=== PATIENT | male | born 1940 | race Caucasian/White ===

== ENCOUNTER → 2016-12-03 | Outpatient (REF) | payer OTHER ==
[~2016-12-03] MED LIST: AMLO10TA2 PO; ASPI1TAB PO; CIPR500T89 PO; FLAG500T PO; HYDR12.55 PO; K-TA1TAB PO; LISI40TAB PO; MULTCAP PO; OXYC1TAB55 PO; OXYC5CAP28 PO; TYLE325T5 PO; ZEBE5TAB PO
[2016-12-03 11:32] LABS: BASO % 0.7 % (0.0-1.0); EOS # 0.2 K/mm3 (0.0-0.50); EOS % 3.1 % (0.0-3.0); LARGE UNSTAINED CELL # 0.1 K/mm3 (0.0-0.4); LARGE UNSTAINED CELL % 1.5 % (0.0-4.0); LYMPH # 1.1 K/mm3 (1.5-4.5); MEAN CORPUSCULAR HEMOGLOBIN 32.6 pg (27.0-33.0); MEAN CORPUSCULAR HGB CONC 34.8 g/dl (32.0-36.5); MEAN CORPUSCULAR VOLUME 93.6 fl (80.0-96.0); MONO # 0.4 K/mm3 (0.0-0.8); MONO % 7.2 % (0.0-5.0); NEUTROPHILS # 3.6 K/mm3 (1.8-7.7); NEUTROPHILS % 68.5 % (36.0-66.0); PLATELET COUNT, AUTOMATED 266 k/mm3 (150-450); RED CELL DISTRIBUTION WIDTH 12.6 % (11.5-14.5); WHITE BLOOD COUNT 5.2 K/mm3 (4.0-10.0)
[2016-12-03 12:16] LABS: ALBUMIN 3.5 GM/DL (3.2-5.2); ALKALINE PHOSPHATASE 80 U/L (45-117); ALT/SGPT 18 U/L (12-78); ANION GAP 7 MEQ/L (8-16); AST/SGOT 14 U/L (15-37); BILIRUBIN,TOTAL 0.6 MG/DL (0.2-1.0); BLOOD UREA NITROGEN 20 MG/DL (7-18); CALCIUM LEVEL 8.7 MG/DL (8.8-10.2); CARBON DIOXIDE LEVEL 31 MEQ/L (21-32); CHLORIDE LEVEL 101 MEQ/L (98-107); CHOLESTEROL LEVEL 191 MG/DL (<200); CREATININE FOR GFR 0.98 MG/DL (0.70-1.30); GLOMERULAR FILTRATION RATE > 60.0 (>42); GLUCOSE, FASTING 122 MG/DL (83-110); POTASSIUM SERUM 3.2 MEQ/L (3.5-5.1); SODIUM LEVEL 139 MEQ/L (136-145); TOTAL PROTEIN 7.4 GM/DL (6.4-8.2); TRIGLYCERIDES LEVEL 145 MG/DL (<150)
== END ==
LOC: M SFHCPLAZ 07:54
PROVIDERS: ATTEND Family Medicine
DX: I10 Essential (primary) hypertension (principal); E78.2 Mixed hyperlipidemia; R73.01 Impaired fasting glucose

== ENCOUNTER → 2016-12-11 | Outpatient (REF) | payer OTHER ==
[2016-12-11 16:13] LABS: BASO % 0.7 % (0.0-1.0); EOS # 0.1 K/mm3 (0.0-0.50); EOS % 1.1 % (0.0-3.0); LARGE UNSTAINED CELL # 0.1 K/mm3 (0.0-0.4); LARGE UNSTAINED CELL % 1.3 % (0.0-4.0); LYMPH # 0.8 K/mm3 (1.5-4.5); MEAN CORPUSCULAR HEMOGLOBIN 32.8 pg (27.0-33.0); MEAN CORPUSCULAR HGB CONC 34.6 g/dl (32.0-36.5); MEAN CORPUSCULAR VOLUME 94.6 fl (80.0-96.0); MONO # 0.4 K/mm3 (0.0-0.8); MONO % 6.8 % (0.0-5.0); NEUTROPHILS # 4.5 K/mm3 (1.8-7.7); NEUTROPHILS % 78.1 % (36.0-66.0); PLATELET COUNT, AUTOMATED 256 k/mm3 (150-450); RED CELL DISTRIBUTION WIDTH 12.7 % (11.5-14.5); WHITE BLOOD COUNT 5.7 K/mm3 (4.0-10.0)
[2016-12-11 16:46] LABS: ALBUMIN 3.7 GM/DL (3.2-5.2); ALBUMIN/GLOBULIN RATIO 0.95 (1.00-1.93); ALKALINE PHOSPHATASE 80 U/L (45-117); ALT/SGPT 21 U/L (12-78); ANION GAP 9 MEQ/L (8-16); AST/SGOT 14 U/L (15-37); BILIRUBIN,TOTAL 0.4 MG/DL (0.2-1.0); BLOOD UREA NITROGEN 20 MG/DL (7-18); CALCIUM LEVEL 8.7 MG/DL (8.8-10.2); CARBON DIOXIDE LEVEL 30 MEQ/L (21-32); CHLORIDE LEVEL 103 MEQ/L (98-107); CREATININE FOR GFR 0.99 MG/DL (0.70-1.30); GLOMERULAR FILTRATION RATE > 60.0 (>42); GLUCOSE, FASTING 104 MG/DL (83-110); MAGNESIUM LEVEL 2.2 MG/DL (1.8-2.4); POTASSIUM SERUM 3.3 MEQ/L (3.5-5.1); SODIUM LEVEL 142 MEQ/L (136-145); TOTAL PROTEIN 7.6 GM/DL (6.4-8.2)
== END ==
LOC: M SFHCPLAZ 12:03
PROVIDERS: ATTEND Family Medicine
DX: K59.00 Constipation, unspecified (principal); J34.0 Abscess, furuncle and carbuncle of nose; R73.01 Impaired fasting glucose; I10 Essential (primary) hypertension; E78.2 Mixed hyperlipidemia; R33.9 Retention of urine, unspecified; N40.1 Benign prostatic hyperplasia with lower urinary tract symptoms; E66.3 Overweight; Z12.11 Encounter for screening for malignant neoplasm of colon
CPT/HCPCS: 36415; 80053; 83735; 85025; 86140; G0463

== ENCOUNTER → 2017-05-16 | Outpatient (REF) | payer OTHER ==
[~2017-05-16] MED LIST changes: +CIPR-249 PO; -CIPR500T89 PO; +OXYC-403 PO; -OXYC1TAB55 PO
[2017-05-16 13:49] LABS: ALBUMIN 3.7 GM/DL (3.2-5.2); ALBUMIN/GLOBULIN RATIO 0.97 (1.00-1.93); ALKALINE PHOSPHATASE 81 U/L (45-117); ALT/SGPT 22 U/L (12-78); ANION GAP 8 MEQ/L (8-16); AST/SGOT 15 U/L (15-37); BILIRUBIN,TOTAL 0.5 MG/DL (0.2-1.0); BLOOD UREA NITROGEN 25 MG/DL (7-18); CALCIUM LEVEL 9.2 MG/DL (8.8-10.2); CARBON DIOXIDE LEVEL 32 MEQ/L (21-32); CHLORIDE LEVEL 100 MEQ/L (98-107); CREATININE FOR GFR 1.05 MG/DL (0.70-1.30); GLOMERULAR FILTRATION RATE > 60.0 (>42); GLUCOSE, FASTING 129 MG/DL (83-110); MAGNESIUM LEVEL 2.3 MG/DL (1.8-2.4); POTASSIUM SERUM 3.1 MEQ/L (3.5-5.1); SODIUM LEVEL 140 MEQ/L (136-145); TOTAL PROTEIN 7.5 GM/DL (6.4-8.2)
== END ==
LOC: M SFHCPLAZ 08:00
PROVIDERS: ATTEND Family Medicine
DX: I10 Essential (primary) hypertension (principal); R73.01 Impaired fasting glucose; N40.1 Benign prostatic hyperplasia with lower urinary tract symptoms
CPT/HCPCS: 36415; 80053; 81001; 82043; 83036; 83735; G0103

== ENCOUNTER 2017-06-12 08:05 | Day surgery (SDC) | payer OTHER ==
[~2017-06-12] VITALS: Ht 170.2 cm; Wt 83.0 kg
[~2017-06-12 08:05] MED LIST changes: +CHLO25TA PO; +FLOM5CAP PO; +METF500T4 PO; +NS 1,000 ML IV ONE; +POTA20TA6 PO
[2017-06-12] MEDS ORDERED: PROPOFOL 200 MG/20 ML VIAL As Ordered ONE (09:48)
--- NOTE | 2017-06-12 09:57 | ROOR ---
Patient Name: Tre Henderson Procedure Date: 06/12/2017 9:36 AM Date of : 1940 Age: 77 Room: [facility] Gender: Male Note Status: Finalized Procedure: Total Colonoscopy to Cecum Indications: Screening for colorectal malignant neoplasm, Last colonoscopy: 2007 Providers: Tom Farrell MD Referring MD: Aubrey Elizondo MD Requesting Provider: Medicines: Monitored Anesthesia Care Complications: No immediate complications. Procedure: Pre-Anesthesia Assessment: - The heart rate, respiratory rate, oxygen saturations, blood pressure, adequacy of pulmonary ventilation, and response to care were monitored throughout the procedure. The Colonoscope was introduced through the anus and advanced to the cecum, identified by appendiceal orifice and ileocecal valve. The colonoscopy was performed without difficulty. The patient tolerated the procedure well. The quality of the bowel preparation was good. Findings: The perianal and digital rectal examinations were normal. Non-bleeding internal hemorrhoids were found during retroflexion. The hemorrhoids were small and Grade I (internal hemorrhoids that do not prolapse). Multiple small and large-mouthed diverticula were found in the recto-sigmoid colon, sigmoid colon and descending colon. The exam was otherwise without abnormality on direct and retroflexion views. Impression: - Non-bleeding internal hemorrhoids. - Diverticulosis in the recto-sigmoid colon, in the sigmoid colon and in the descending colon. - The examination was otherwise normal on direct and retroflexion views. - No specimens collected. - The exam was otherwise normal to the cecum. Recommendation: - Patient has a contact number available for emergencies. The signs and symptoms of potential delayed complications were discussed with the patient. Return to normal activities tomorrow. Written discharge instructions were provided to the patient. - High fiber diet. - Discharge patient to home. - Continue present medications. - Repeat colonoscopy for symptoms only. - Return to referring physician. - The findings and recommendations were discussed with the patient's family. Tom Farrell MD Tom Farrell MD 06/12/2017 9:56:56 AM This report has been signed electronically. Number of Addenda: 0 Note Initiated On: 06/12/2017 9:36 AM Estimated Blood Loss: Estimated blood loss: none.
[2017-06-12 10:10] VITALS: BP 134/72
== END 2017-06-12 10:20 | disposition home or self-care (01) ==
LOC: M OPP 08:05
PROVIDERS: ATTEND Internal Medicine Gastroenterology
DX: Z12.11 Encounter for screening for malignant neoplasm of colon (principal); K64.0 First degree hemorrhoids; K57.30 Diverticulosis of large intestine without perforation or abscess without bleeding; I10 Essential (primary) hypertension; E11.9 Type 2 diabetes mellitus without complications; N40.0 Benign prostatic hyperplasia without lower urinary tract symptoms; Z79.82 Long term (current) use of aspirin; Z79.84 Long term (current) use of oral hypoglycemic drugs; Z79.899 Other long term (current) drug therapy

== ENCOUNTER → 2017-10-14 | Outpatient (REF) | payer OTHER ==
[2017-10-14 11:57] LABS: BASO % 0.6 % (0.0-1.0); EOS # 0.3 10^3/uL (0.0-0.50); EOS % 5.3 % (0.0-3.0); HEMATOCRIT 42.1 % (42.0-52.0); HEMOGLOBIN 14.4 g/dl (14.0-18.0); IMMATURE GRANULOCYTE % 0.2 % (0-3.0); LYMPH % 21.3 % (24.0-44.0); MEAN CORPUSCULAR HEMOGLOBIN 31.5 pg (27.0-33.0); MEAN CORPUSCULAR HGB CONC 34.2 g/dl (32.0-36.5); MEAN CORPUSCULAR VOLUME 92.1 fl (80.0-96.0); MONO # 0.4 10^3/uL (0.0-0.8); MONO % 8.8 % (0.0-5.0); NEUTROPHILS # 3.1 10^3/uL (1.8-7.7); NEUTROPHILS % 63.8 % (36.0-66.0); PLATELET COUNT, AUTOMATED 293 10^3/uL (150-450); RED BLOOD COUNT 4.57 10^6/uL (4.30-6.10); RED CELL DISTRIBUTION WIDTH 12.3 % (11.5-14.5); WHITE BLOOD COUNT 4.9 10^3/uL (4.0-10.0)
[2017-10-14 12:20] LABS: ALBUMIN 3.6 GM/DL (3.2-5.2); ALBUMIN/GLOBULIN RATIO 0.97 (1.00-1.93); ALKALINE PHOSPHATASE 85 U/L (45-117); ALT/SGPT 17 U/L (12-78); ANION GAP 7 MEQ/L (8-16); AST/SGOT 17 U/L (7-37); BILIRUBIN,TOTAL 0.4 MG/DL (0.2-1.0); BLOOD UREA NITROGEN 20 MG/DL (7-18); C REACTIVE PROTEIN QUANTITATIV 0.44 MG/DL (0.00-0.30); CALCIUM LEVEL 8.8 MG/DL (8.8-10.2); CARBON DIOXIDE LEVEL 29 MEQ/L (21-32); CHLORIDE LEVEL 105 MEQ/L (98-107); CHOLESTEROL LEVEL 191 MG/DL (<200); CHOLESTEROL RISK RATIO 4.063 (<5); CPK CREATINE PHOSPHOKINASE 64 U/L (39-308); CREATININE FOR GFR 0.93 MG/DL (0.70-1.30); FREE T4 1.13 NG/DL (0.76-1.46); GLOMERULAR FILTRATION RATE > 60.0 (>42); GLUCOSE, FASTING 126 MG/DL (70-100); HDL CHOLESTEROL 47 MG/DL (>40); LDL CHOLESTEROL 116.2 MG/DL (<100); NON-HDL-C 144 MG/DL; POTASSIUM SERUM 3.6 MEQ/L (3.5-5.1); SODIUM LEVEL 141 MEQ/L (136-145); TOTAL PROTEIN 7.3 GM/DL (6.4-8.2); TRIGLYCERIDES LEVEL 139 MG/DL (<150)
[2017-10-14 13:45] LABS: ESTIMATED AVERAGE GLUCOSE 123 MG/DL (60-110); HEMOGLOBIN A1c 5.9 %
[2017-10-15 14:13] LABS: INSULIN LEVEL 15.8 uIU/mL (2.6-24.9)
== END ==
LOC: M SFHCPLAZ 07:57
DX: E78.2 Mixed hyperlipidemia (principal); R73.01 Impaired fasting glucose
CPT/HCPCS: 82550

== ENCOUNTER → 2018-02-20 | Outpatient (REF) | payer OTHER ==
[2018-02-20 12:37] LABS: APPEARANCE, URINE CLOUDY (CLEAR); BACTERIA, URINE AUTO 1+ (NEGATIVE); BILIRUBIN, URINE AUTO NEGATIVE (NEGATIVE); BLOOD, URINE BLOOD NEGATIVE (NEGATIVE); COLOR, URINE AMBER (YELLOW); GLUCOSE, URINE (UA) AUTO NEGATIVE (NEGATIVE); KETONE, URINE AUTO NEGATIVE (NEGATIVE); LEUKOCYTE ESTERASE, URINE AUTO NEGATIVE (NEGATIVE); MUCUS, URINE MODERATE (NEGATIVE); NITRITE, URINE AUTO NEGATIVE (NEGATIVE); PROTEIN, URINE AUTO 1+ mg/dL (NEGATIVE); RBC, URINE AUTO 3 /HPF (0-3); SPECIFIC GRAVITY URINE AUTO 1.017 (1.002-1.035); SQUAMOUS EPITHELIAL CELL UR AU 0 /HPF (0-6); WBC, URINE AUTO 7 /HPF (0-3)
[2018-02-20 12:58] LABS: ALBUMIN 3.4 GM/DL (3.2-5.2); ALBUMIN/GLOBULIN RATIO 0.85 (1.00-1.93); ALKALINE PHOSPHATASE 74 U/L (45-117); ALT/SGPT 24 U/L (12-78); ANION GAP 9 MEQ/L (8-16); AST/SGOT 16 U/L (7-37); BILIRUBIN,TOTAL 0.6 MG/DL (0.2-1.0); BLOOD UREA NITROGEN 17 MG/DL (7-18); CALCIUM LEVEL 8.8 MG/DL (8.8-10.2); CARBON DIOXIDE LEVEL 30 MEQ/L (21-32); CHLORIDE LEVEL 104 MEQ/L (98-107); CHOLESTEROL LEVEL 104 MG/DL (<200); CHOLESTEROL RISK RATIO 2.363 (<5); CPK CREATINE PHOSPHOKINASE 78 U/L (39-308); CREATININE FOR GFR 1.06 MG/DL (0.70-1.30); GLOMERULAR FILTRATION RATE > 60.0 (>42); GLUCOSE, FASTING 130 MG/DL (70-100); HDL CHOLESTEROL 44 MG/DL (>40); MAGNESIUM LEVEL 2.1 MG/DL (1.8-2.4); NON-HDL-C 60 MG/DL; POTASSIUM SERUM 3.6 MEQ/L (3.5-5.1); SODIUM LEVEL 143 MEQ/L (136-145); TOTAL PROTEIN 7.4 GM/DL (6.4-8.2); TRIGLYCERIDES LEVEL 120 MG/DL (<150)
[2018-02-20 14:46] LABS: ESTIMATED AVERAGE GLUCOSE 154 MG/DL (60-110)
== END ==
LOC: M SFHCPLAZ 07:52
DX: E78.2 Mixed hyperlipidemia (principal); R73.01 Impaired fasting glucose; N40.1 Benign prostatic hyperplasia with lower urinary tract symptoms
CPT/HCPCS: 82550

== ENCOUNTER → 2018-07-24 | Outpatient (REF) | payer OTHER ==
[~2018-07-24] MED LIST changes: -AMLO10TA2 PO; +AMLO10TA5 PO; +FLOM0.4C39 PO; -FLOM5CAP PO; -NS 1,000 ML IV ONE
[2018-07-24 13:14] LABS: APPEARANCE, URINE HAZY (CLEAR); BACTERIA, URINE AUTO NEGATIVE (NEGATIVE); BILIRUBIN, URINE AUTO NEGATIVE (NEGATIVE); BLOOD, URINE BLOOD NEGATIVE (NEGATIVE); COLOR, URINE AMBER (YELLOW); GLUCOSE, URINE (UA) AUTO NEGATIVE (NEGATIVE); KETONE, URINE AUTO NEGATIVE (NEGATIVE); LEUKOCYTE ESTERASE, URINE AUTO NEGATIVE (NEGATIVE); MUCUS, URINE LARGE (NEGATIVE); NITRITE, URINE AUTO NEGATIVE (NEGATIVE); PROTEIN, URINE AUTO NEGATIVE (NEGATIVE); RBC, URINE AUTO 3 /HPF (0-3); SPECIFIC GRAVITY URINE AUTO 1.021 (1.002-1.035); SQUAMOUS EPITHELIAL CELL UR AU 0 /HPF (0-6); UROBILINOGEN, URINE AUTO 0.2 mg/dL (0.0-2.0); WBC, URINE AUTO 2 /HPF (0-3)
[2018-07-24 13:16] LABS: BASO % 0.5 % (0.0-1.0); EOS # 0.2 10^3/uL (0.0-0.50); EOS % 3.7 % (0.0-3.0); HEMATOCRIT 39.8 % (42.0-52.0); HEMOGLOBIN 13.8 g/dl (13.5-17.5); LYMPH # 1.1 10^3/uL (1.5-4.5); LYMPH % 18.8 % (24.0-44.0); MEAN CORPUSCULAR HEMOGLOBIN 32.2 pg (27.0-33.0); MEAN CORPUSCULAR HGB CONC 34.7 g/dl (32.0-36.5); MEAN CORPUSCULAR VOLUME 92.8 fl (80.0-96.0); MONO # 0.5 10^3/uL (0.0-0.8); MONO % 9.2 % (0.0-5.0); NEUTROPHILS # 3.9 10^3/uL (1.8-7.7); NEUTROPHILS % 67.5 % (36.0-66.0); PLATELET COUNT, AUTOMATED 262 10^3/uL (150-450); RED BLOOD COUNT 4.29 10^6/uL (4.30-6.10); WHITE BLOOD COUNT 5.8 10^3/uL (4.0-10.0)
[2018-07-24 13:30] LABS: ALBUMIN 3.5 GM/DL (3.2-5.2); ALT/SGPT 35 U/L (12-78); BILIRUBIN,TOTAL 0.4 MG/DL (0.2-1.0); BLOOD UREA NITROGEN 22 MG/DL (7-18); CALCIUM LEVEL 8.7 MG/DL (8.8-10.2); CARBON DIOXIDE LEVEL 30 MEQ/L (21-32); CHLORIDE LEVEL 103 MEQ/L (98-107); CREATININE FOR GFR 1.03 MG/DL (0.70-1.30); FREE T4 1.19 NG/DL (0.76-1.46); GLOMERULAR FILTRATION RATE > 60.0 (>42); GLUCOSE, FASTING 118 MG/DL (70-100); POTASSIUM SERUM 3.5 MEQ/L (3.5-5.1); SODIUM LEVEL 140 MEQ/L (136-145); TOTAL PROTEIN 7.3 GM/DL (6.4-8.2)
[2018-07-24 14:20] LABS: MALB URINE SIEMENS 49.7 MG/L; MAU/CREAT RATIO 16.8 MCG/MG (0.0-30.0)
[2018-07-24 14:42] LABS: HEMOGLOBIN A1c 6.4 %
[2018-07-25 13:49] LABS: THYROID PEROXIDASE ANTIBODY < 28.0 U/ML (<60.0)
== END ==
LOC: M SFHCPLAZ 07:40
PROVIDERS: ATTEND Family Medicine
DX: R73.01 Impaired fasting glucose (principal); E78.2 Mixed hyperlipidemia

== ENCOUNTER → 2019-01-20 | Outpatient (REF) | payer MEDICARE ==
[~2019-01-20] MED LIST changes: -ASPI1TAB PO; +ASPI81TA26 PO; +LISI40TA52 PO; -LISI40TAB PO
[2019-01-20 10:03] LABS: BASO % 0.4 % (0.0-1.0); EOS # 0.2 10^3/uL (0.0-0.50); EOS % 4.5 % (0.0-3.0); HEMATOCRIT 40.6 % (42.0-52.0); HEMOGLOBIN 13.8 g/dl (13.5-17.5); LYMPH # 1.1 10^3/uL (1.5-4.5); LYMPH % 20.5 % (24.0-44.0); MEAN CORPUSCULAR HEMOGLOBIN 31.8 pg (27.0-33.0); MEAN CORPUSCULAR VOLUME 93.5 fl (80.0-96.0); MONO # 0.6 10^3/uL (0.0-0.8); NEUTROPHILS # 3.3 10^3/uL (1.8-7.7); NEUTROPHILS % 63.2 % (36.0-66.0); PLATELET COUNT, AUTOMATED 248 10^3/uL (150-450); RED BLOOD COUNT 4.34 10^6/uL (4.30-6.10); WHITE BLOOD COUNT 5.3 10^3/uL (4.0-10.0)
[2019-01-20 10:17] LABS: APPEARANCE, URINE HAZY (CLEAR); BACTERIA, URINE AUTO NEGATIVE (NEGATIVE); BILIRUBIN, URINE AUTO NEGATIVE (NEGATIVE); BLOOD, URINE BLOOD NEGATIVE (NEGATIVE); COLOR, URINE YELLOW (YELLOW); GLUCOSE, URINE (UA) AUTO NEGATIVE (NEGATIVE); KETONE, URINE AUTO TRACE mg/dL (NEGATIVE); LEUKOCYTE ESTERASE, URINE AUTO NEGATIVE (NEGATIVE); MUCUS, URINE SMALL (NEGATIVE); NITRITE, URINE AUTO NEGATIVE (NEGATIVE); PROTEIN, URINE AUTO NEGATIVE (NEGATIVE); RBC, URINE AUTO 2 /HPF (0-3); SPECIFIC GRAVITY URINE AUTO 1.018 (1.002-1.035); SQUAMOUS EPITHELIAL CELL UR AU 0 /HPF (0-6); UROBILINOGEN, URINE AUTO 0.2 mg/dL (0.0-2.0); WBC, URINE AUTO 1 /HPF (0-3)
[2019-01-20 10:22] LABS: ALBUMIN 3.6 GM/DL (3.2-5.2); ALT/SGPT 22 U/L (12-78); BILIRUBIN,TOTAL 0.6 MG/DL (0.2-1.0); BLOOD UREA NITROGEN 19 MG/DL (7-18); CALCIUM LEVEL 8.9 MG/DL (8.8-10.2); CARBON DIOXIDE LEVEL 28 MEQ/L (21-32); CHLORIDE LEVEL 104 MEQ/L (98-107); CHOLESTEROL LEVEL 116 MG/DL (<200); GLOMERULAR FILTRATION RATE > 60.0 (>42); GLUCOSE, FASTING 122 MG/DL (70-100); HDL CHOLESTEROL 52 MG/DL (>40); LDL CHOLESTEROL 43 MG/DL (<100); MAGNESIUM LEVEL 2.3 MG/DL (1.8-2.4); NON-HDL-C 64 MG/DL; POTASSIUM SERUM 3.4 MEQ/L (3.5-5.1); SODIUM LEVEL 141 MEQ/L (136-145); TOTAL PROTEIN 7.5 GM/DL (6.4-8.2); TRIGLYCERIDES LEVEL 103 MG/DL (<150)
[2019-01-20 11:33] LABS: HEMOGLOBIN A1c 6.4 %
[2019-01-20 14:09] LABS: VITAMIN B12 LEVEL 480 PG/ML (247-911)
== END ==
LOC: M SFHCPLAZ 07:44
PROVIDERS: ATTEND Family Medicine
DX: I10 Essential (primary) hypertension (principal); R73.01 Impaired fasting glucose; E78.2 Mixed hyperlipidemia

== ENCOUNTER → 2019-08-11 | Outpatient (REF) | payer MEDICARE ==
[~2019-08-11] MED LIST changes: +METF-791 PO; -METF500T4 PO
[2019-08-11 10:38] LABS: BASO % 0.6 % (0.0-1.0); EOS # 0.2 10^3/uL (0.0-0.5); EOS % 4.5 % (0.0-3.0); HEMATOCRIT 42.3 % (42.0-52.0); LYMPH # 0.9 10^3/uL (1.5-5.0); LYMPH % 20.2 % (24.0-44.0); MEAN CORPUSCULAR HEMOGLOBIN 31.3 pg (27.0-33.0); MEAN CORPUSCULAR HGB CONC 33.1 g/dl (32.0-36.5); MEAN CORPUSCULAR VOLUME 94.6 fl (80.0-96.0); MONO # 0.5 10^3/uL (0.0-0.8); MONO % 11.6 % (0.0-5.0); NEUTROPHILS # 2.9 10^3/uL (1.5-8.5); NEUTROPHILS % 62.9 % (36.0-66.0); PLATELET COUNT, AUTOMATED 234 10^3/uL (150-450); RED BLOOD COUNT 4.47 10^6/uL (4.30-6.10); WHITE BLOOD COUNT 4.7 10^3/uL (4.0-10.0)
[2019-08-11 11:01] LABS: ALBUMIN 3.7 GM/DL (3.2-5.2); ALT/SGPT 17 U/L (12-78); BILIRUBIN,TOTAL 0.7 MG/DL (0.2-1.0); BLOOD UREA NITROGEN 20 MG/DL (7-18); CALCIUM LEVEL 8.7 MG/DL (8.8-10.2); CARBON DIOXIDE LEVEL 29 MEQ/L (21-32); CHLORIDE LEVEL 103 MEQ/L (98-107); CREATININE FOR GFR 0.99 MG/DL (0.70-1.30); GLOMERULAR FILTRATION RATE > 60.0 (>42); GLUCOSE, FASTING 118 MG/DL (70-100); POTASSIUM SERUM 3.2 MEQ/L (3.5-5.1); SODIUM LEVEL 140 MEQ/L (136-145); TOTAL PROTEIN 7.3 GM/DL (6.4-8.2)
[2019-08-11 12:45] LABS: HEMOGLOBIN A1c 6.2 %
[2019-08-13 14:12] LABS: ALBUMIN 3.93 GM/DL (3.29-5.55); ALBUMIN % 53.9 % (55.8-66.1); ALPHA-1-GLOBULIN % 3.9 % (2.9-4.9); ALPHA-1-GLOBULINS 0.28 GM/DL (0.17-0.41); ALPHA-2-GLOBULINS 0.76 GM/DL (0.42-0.99); ALPHA-2-GLOBULINS % 10.4 % (7.1-11.8); BETA-1-GLOBULINS 0.37 GM/DL (0.28-0.60); BETA-1-GLOBULINS % 5.1 % (4.7-7.2); BETA-2-GLOBULINS 0.35 GM/DL (0.19-0.55); BETA-2-GLOBULINS % 4.8 % (3.2-6.5); GAMMA GLOBULIN % 21.9 % (11.1-18.8)
== END ==
LOC: M SFHCPLAZ 07:43
PROVIDERS: ATTEND Family Medicine
DX: Z12.5 Encounter for screening for malignant neoplasm of prostate (principal); R73.01 Impaired fasting glucose; I10 Essential (primary) hypertension
CPT/HCPCS: 36415; 80053; 83036; 84165; 84439; 84443; 85025; 85046; G0103

== ENCOUNTER → 2020-01-08 | Outpatient (CLI) | payer MEDICARE ==
[~2020-01-08] MED LIST changes: -AMLO10TA5 PO; +AMLO1TAB25 PO; -METF-791 PO; +METF-838 PO
[2020-01-08 11:26] LABS: ALBUMIN 3.6 GM/DL (3.2-5.2); ALT/SGPT 22 U/L (12-78); BILIRUBIN,TOTAL 0.5 MG/DL (0.2-1.0); BLOOD UREA NITROGEN 24 MG/DL (7-18); CALCIUM LEVEL 8.5 MG/DL (8.8-10.2); CARBON DIOXIDE LEVEL 31 MEQ/L (21-32); CHLORIDE LEVEL 105 MEQ/L (98-107); CREATININE FOR GFR 1.09 MG/DL (0.70-1.30); GLOMERULAR FILTRATION RATE > 60.0 (>42); GLUCOSE, FASTING 120 MG/DL (70-100); IMMUNOGLOBULIN G 1530 MG/DL (681-1648); MAGNESIUM LEVEL 2.3 MG/DL (1.8-2.4); POTASSIUM SERUM 3.3 MEQ/L (3.5-5.1); SODIUM LEVEL 142 MEQ/L (136-145); TOTAL PROTEIN 7.5 GM/DL (6.4-8.2)
[2020-01-08 11:28] LABS: HEMOGLOBIN A1c 6.5 %
[2020-01-09 17:07] LABS: FREE KAPPA LIGHT CHAINS SERUM 27.5 mg/L (3.3-19.4); FREE LAMBDA LIGHT CHAINS SERUM 15.9 mg/L (5.7-26.3); KAPPA/LAMBDA RATIO SERUM 1.73 (0.26-1.65)
[2020-01-12 10:13] LABS: IMMUNOTYPING SERUM IGG ABNORMAL (NORMAL); IMMUNOTYPING SERUM LAMBDA ABNORMAL (NORMAL)
== END ==
LOC: M PLALAB 08:03
PROVIDERS: ATTEND Family Medicine
DX: D47.2 Monoclonal gammopathy (principal); R73.01 Impaired fasting glucose

== ENCOUNTER → 2020-11-04 | Outpatient (REF) | payer MEDICARE ==
[2020-11-04 10:31] LABS: BASO % 0.5 % (0.0-1.0); EOS # 0.2 10^3/uL (0.0-0.5); EOS % 4.2 % (0.0-3.0); HEMATOCRIT 41.8 % (42.0-52.0); HEMOGLOBIN 14.5 g/dl (13.5-17.5); LYMPH # 1.1 10^3/uL (1.5-5.0); LYMPH % 19.6 % (24.0-44.0); MEAN CORPUSCULAR HEMOGLOBIN 32.6 pg (27.0-33.0); MEAN CORPUSCULAR HGB CONC 34.7 g/dl (32.0-36.5); MEAN CORPUSCULAR VOLUME 93.9 fl (80.0-96.0); MONO # 0.5 10^3/uL (0.0-0.8); MONO % 9.5 % (2.0-8.0); NEUTROPHILS # 3.8 10^3/uL (1.5-8.5); PLATELET COUNT, AUTOMATED 274 10^3/uL (150-450); RED BLOOD COUNT 4.45 10^6/uL (4.30-6.10); WHITE BLOOD COUNT 5.7 10^3/uL (4.0-10.0)
[2020-11-04 11:08] LABS: ALBUMIN 3.8 GM/DL (3.2-5.2); ALT/SGPT 22 U/L (12-78); BILIRUBIN,TOTAL 0.6 MG/DL (0.2-1.0); BLOOD UREA NITROGEN 19 MG/DL (7-18); CALCIUM LEVEL 9.1 MG/DL (8.8-10.2); CARBON DIOXIDE LEVEL 28 MEQ/L (21-32); CHLORIDE LEVEL 105 MEQ/L (98-107); CHOLESTEROL LEVEL 113 MG/DL (<200); CHOLESTEROL RISK RATIO 2.173 (<5); CREATININE FOR GFR 0.94 MG/DL (0.70-1.30); FREE T4 1.23 NG/DL (0.76-1.46); GLOMERULAR FILTRATION RATE > 60.0 (>42); GLUCOSE, FASTING 135 MG/DL (70-100); HDL CHOLESTEROL 52 MG/DL (>40); LDL CHOLESTEROL 44 MG/DL (<100); NON-HDL-C 61 MG/DL; POTASSIUM SERUM 3.3 MEQ/L (3.5-5.1); SODIUM LEVEL 139 MEQ/L (136-145); TOTAL PROTEIN 7.6 GM/DL (6.4-8.2); TRIGLYCERIDES LEVEL 87 MG/DL (<150)
[2020-11-04 11:10] LABS: HEMOGLOBIN A1c 6.4 %
[2020-11-05 18:10] LABS: FREE LAMBDA LIGHT CHAINS SERUM 16.8 mg/L (5.7-26.3); KAPPA/LAMBDA RATIO SERUM 1.61 (0.26-1.65)
== END ==
LOC: M SFHCPLAZ 08:03
PROVIDERS: ATTEND Family Medicine
DX: E78.2 Mixed hyperlipidemia (principal); I10 Essential (primary) hypertension; R73.01 Impaired fasting glucose; Z12.5 Encounter for screening for malignant neoplasm of prostate; D75.89 Other specified diseases of blood and blood-forming organs
CPT/HCPCS: 36415; 80053; 80061; 83036; 83525; 83883; 84439; 84443; 85025; G0103

== ENCOUNTER → 2020-11-07 | Outpatient (REF) | payer MEDICARE ==
[2020-11-09 09:08] LABS: FREE KAPPA LIGHT CHAINS URINE 72.63 mg/L (0.63-113.79); FREE LAMBDA LIGHT CHAINS URINE 4.49 mg/L (0.47-11.77); KAPPA/LAMBDA RATIO URINE 16.18 (1.03-31.76)
== END ==
LOC: M SFHCPLAZ 10:05
PROVIDERS: ATTEND Family Medicine
DX: E78.2 Mixed hyperlipidemia (principal); I10 Essential (primary) hypertension; R73.01 Impaired fasting glucose; Z12.5 Encounter for screening for malignant neoplasm of prostate; D75.89 Other specified diseases of blood and blood-forming organs

== ENCOUNTER → 2021-04-27 | Outpatient (CLI) | payer MEDICARE ==
[2021-04-27 11:42] LABS: APPEARANCE, URINE HAZY (CLEAR); BACTERIA, URINE AUTO 1+ (NEGATIVE); BILIRUBIN, URINE AUTO NEGATIVE (NEGATIVE); BLOOD, URINE BLOOD NEGATIVE (NEGATIVE); COLOR, URINE YELLOW (YELLOW); GLUCOSE, URINE (UA) AUTO NEGATIVE (NEGATIVE); KETONE, URINE AUTO NEGATIVE (NEGATIVE); LEUKOCYTE ESTERASE, URINE AUTO NEGATIVE (NEGATIVE); MUCUS, URINE SMALL (NEGATIVE); NITRITE, URINE AUTO NEGATIVE (NEGATIVE); PROTEIN, URINE AUTO NEGATIVE (NEGATIVE); RBC, URINE AUTO 1 /HPF (0-3); SPECIFIC GRAVITY URINE AUTO 1.012 (1.002-1.035); SQUAMOUS EPITHELIAL CELL UR AU 0 /HPF (0-6); UROBILINOGEN, URINE AUTO 0.2 mg/dL (0.0-2.0); WBC, URINE AUTO 1 /HPF (0-3)
[2021-04-27 11:43] LABS: BASO % 0.7 % (0.0-1.0); EOS # 0.3 10^3/uL (0.0-0.5); EOS % 4.9 % (0.0-3.0); HEMATOCRIT 40.6 % (42.0-52.0); HEMOGLOBIN 13.9 g/dl (13.5-17.5); LYMPH # 1.6 10^3/uL (1.5-5.0); LYMPH % 26.7 % (24.0-44.0); MEAN CORPUSCULAR HGB CONC 34.2 g/dl (32.0-36.5); MEAN CORPUSCULAR VOLUME 93.5 fl (80.0-96.0); MONO # 0.7 10^3/uL (0.0-0.8); MONO % 11.4 % (2.0-8.0); NEUTROPHILS # 3.3 10^3/uL (1.5-8.5); PLATELET COUNT, AUTOMATED 285 10^3/uL (150-450); RED BLOOD COUNT 4.34 10^6/uL (4.30-6.10); WHITE BLOOD COUNT 5.9 10^3/uL (4.0-10.0)
[2021-04-27 13:21] LABS: ALBUMIN 3.7 GM/DL (3.2-5.2); ALT/SGPT 25 U/L (12-78); BILIRUBIN,TOTAL 0.7 MG/DL (0.2-1.0); BLOOD UREA NITROGEN 16 MG/DL (7-18); CALCIUM LEVEL 9.5 MG/DL (8.8-10.2); CARBON DIOXIDE LEVEL 29 MEQ/L (21-32); CHLORIDE LEVEL 101 MEQ/L (98-107); CREATININE FOR GFR 1.14 MG/DL (0.70-1.30); GLOMERULAR FILTRATION RATE > 60.0 (>42); GLUCOSE, FASTING 142 MG/DL (70-100); POTASSIUM SERUM 3.3 MEQ/L (3.5-5.1); SODIUM LEVEL 139 MEQ/L (136-145); TOTAL PROTEIN 7.7 GM/DL (6.4-8.2)
[2021-04-27 13:28] LABS: VITAMIN B12 LEVEL 422 PG/ML (247-911)
[2021-04-27 15:29] LABS: MALB URINE SIEMENS 39.3 MG/L; MAU/CREAT RATIO 23.6 MCG/MG (0.0-30.0)
[2021-05-01 15:05] LABS: ALBUMIN 4.15 GM/DL (3.29-5.55); ALBUMIN % 53.9 % (55.8-66.1); ALPHA-1-GLOBULIN % 4.2 % (2.9-4.9); ALPHA-1-GLOBULINS 0.32 GM/DL (0.17-0.41); ALPHA-2-GLOBULINS 0.86 GM/DL (0.42-0.99); ALPHA-2-GLOBULINS % 11.2 % (7.1-11.8); BETA-1-GLOBULINS % 5.1 % (4.7-7.2); BETA-2-GLOBULINS % 4.5 % (3.2-6.5); GAMMA GLOBULIN % 21.1 % (11.1-18.8)
[2021-05-01 15:06] LABS: BETA-1-GLOBULINS 0.39 GM/DL (0.28-0.60); BETA-2-GLOBULINS 0.35 GM/DL (0.19-0.55); GAMMA GLOBULINS 1.62 GM/DL (0.65-1.58)
[2021-05-01 16:12] LABS: FREE KAPPA LIGHT CHAINS SERUM 35.2 mg/L (3.3-19.4); FREE KAPPA LIGHT CHAINS URINE 48.63 mg/L (0.63-113.79); FREE LAMBDA LIGHT CHAINS SERUM 19.4 mg/L (5.7-26.3); FREE LAMBDA LIGHT CHAINS URINE 6.62 mg/L (0.47-11.77); KAPPA/LAMBDA RATIO SERUM 1.81 (0.26-1.65); KAPPA/LAMBDA RATIO URINE 7.35 (1.03-31.76)
== END ==
LOC: M PLALAB 07:51
PROVIDERS: ATTEND Family Medicine
DX: D75.89 Other specified diseases of blood and blood-forming organs (principal); Z79.899 Other long term (current) drug therapy

== ENCOUNTER → 2021-05-15 | Outpatient (CLI) | payer MEDICARE ==
[2021-05-15 11:11] LABS: ALBUMIN 3.4 GM/DL (3.2-5.2); BLOOD UREA NITROGEN 20 MG/DL (7-18); CALCIUM LEVEL 8.6 MG/DL (8.8-10.2); CARBON DIOXIDE LEVEL 29 MEQ/L (21-32); CHLORIDE LEVEL 104 MEQ/L (98-107); CREATININE FOR GFR 1.13 MG/DL (0.70-1.30); GLOMERULAR FILTRATION RATE > 60.0 (>42); GLUCOSE, FASTING 188 MG/DL (70-100); MAGNESIUM LEVEL 1.8 MG/DL (1.8-2.4); NT-PRO BNP 48 PG/ML (<450); PHOSPHORUS LEVEL 2.8 MG/DL (2.5-4.9); POTASSIUM SERUM 3.7 MEQ/L (3.5-5.1); SODIUM LEVEL 138 MEQ/L (136-145)
== END ==
LOC: M PLALAB 09:02
PROVIDERS: ATTEND Family Medicine
DX: I10 Essential (primary) hypertension (principal)

== ENCOUNTER → 2021-10-17 | Outpatient (CLI) | payer MEDICARE ==
[~2021-10-17] MED LIST changes: +POTA-151 PO; -POTA20TA6 PO
[2021-10-17 10:13] LABS: BASO % 0.5 % (0.0-1.0); EOS # 0.2 10^3/uL (0.0-0.5); EOS % 2.8 % (0.0-3.0); HEMATOCRIT 38.6 % (42.0-52.0); HEMOGLOBIN 13.1 g/dl (13.5-17.5); LYMPH # 1.1 10^3/uL (1.5-5.0); LYMPH % 16.2 % (24.0-44.0); MEAN CORPUSCULAR HEMOGLOBIN 32.3 pg (27.0-33.0); MEAN CORPUSCULAR HGB CONC 33.9 g/dl (32.0-36.5); MEAN CORPUSCULAR VOLUME 95.3 fl (80.0-96.0); MONO # 0.5 10^3/uL (0.0-0.8); NEUTROPHILS # 4.7 10^3/uL (1.5-8.5); PLATELET COUNT, AUTOMATED 260 10^3/uL (150-450); RED BLOOD COUNT 4.05 10^6/uL (4.30-6.10); WHITE BLOOD COUNT 6.5 10^3/uL (4.0-10.0)
[2021-10-17 10:30] LABS: HEMOGLOBIN A1c 6.1 %
[2021-10-17 11:13] LABS: ALBUMIN 3.7 GM/DL (3.2-5.2); BILIRUBIN,TOTAL 0.6 MG/DL (0.2-1.0); CALCIUM LEVEL 9.2 MG/DL (8.8-10.2); CHOLESTEROL RISK RATIO 1.914 (<5); CREATININE FOR GFR 1.36 MG/DL (0.70-1.30); GLOMERULAR FILTRATION RATE 53.7 (>35); TOTAL PROTEIN 7.4 GM/DL (6.4-8.2)
== END ==
LOC: M PLALAB 07:42
PROVIDERS: ATTEND Family Medicine
DX: E78.2 Mixed hyperlipidemia (principal); R73.01 Impaired fasting glucose; D75.89 Other specified diseases of blood and blood-forming organs; Z12.5 Encounter for screening for malignant neoplasm of prostate; I10 Essential (primary) hypertension
CPT/HCPCS: 36415; 80053; 80061; 82728; 83036; 83525; 83880; 85025; G0103

== ENCOUNTER → 2021-11-28 | Outpatient (CLI) | payer MEDICARE | LOC: M RAD 08:57 | PROVIDERS: ATTEND Family Medicine | DX: I10 Essential (primary) hypertension (principal) ==

== ENCOUNTER → 2022-04-17 | Outpatient (CLI) | payer MEDICARE ==
[2022-04-17 13:38] LABS: BASO % 0.5 % (0.0-1.0); EOS # 0.3 10^3/uL (0.0-0.5); HEMATOCRIT 37.6 % (42.0-52.0); HEMOGLOBIN 12.5 g/dl (13.5-17.5); LYMPH # 1.1 10^3/uL (1.5-5.0); LYMPH % 17.2 % (24.0-44.0); MEAN CORPUSCULAR HEMOGLOBIN 32.2 pg (27.0-33.0); MEAN CORPUSCULAR HGB CONC 33.2 g/dl (32.0-36.5); MEAN CORPUSCULAR VOLUME 96.9 fl (80.0-96.0); MONO # 0.4 10^3/uL (0.0-0.8); MONO % 6.6 % (2.0-8.0); NEUTROPHILS # 4.7 10^3/uL (1.5-8.5); NEUTROPHILS % 71.4 % (36.0-66.0); PLATELET COUNT, AUTOMATED 280 10^3/uL (150-450); RED BLOOD COUNT 3.88 10^6/uL (4.30-6.10); WHITE BLOOD COUNT 6.5 10^3/uL (4.0-10.0)
[2022-04-17 13:41] LABS: ALBUMIN 3.8 GM/DL (3.2-5.2); BILIRUBIN,TOTAL 0.4 MG/DL (0.2-1.0); CALCIUM LEVEL 9.5 MG/DL (8.8-10.2); CREATININE FOR GFR 1.35 MG/DL (0.70-1.30); GLOMERULAR FILTRATION RATE 54.1 (>35); MAGNESIUM LEVEL 2.1 MG/DL (1.8-2.4); POTASSIUM SERUM 4.1 MEQ/L (3.5-5.1); TOTAL PROTEIN 7.7 GM/DL (6.4-8.2)
== END ==
LOC: M PLALAB 09:06
PROVIDERS: ATTEND Family Medicine
DX: D47.2 Monoclonal gammopathy (principal); I10 Essential (primary) hypertension

== ENCOUNTER → 2022-10-24 | Outpatient (CLI) | payer MEDICARE ==
[~2022-10-24] MED LIST changes: -OXYC-403 PO; +OXYC-673 PO
[2022-10-24 12:06] LABS: TOTAL PROTEIN,RANDOM URINE 10.7 MG/DL (0.0-14.0)
[2022-10-24 12:08] LABS: CREATININE,RANDOM URINE 110.8 MG/DL
[2022-10-24 12:12] LABS: FREE T4 1.23 NG/DL (0.89-1.76)
[2022-10-24 12:13] LABS: THYROID STIMULATING HORMONE 3.737 uIU/ML (0.55-4.78)
[2022-10-24 12:14] LABS: ALBUMIN 3.7 G/DL (3.2-5.2); ALKALINE PHOSPHATASE 58 U/L (46-116); ALT/SGPT 18 U/L (7.0-40); AST/SGOT 18 U/L (<34); BILIRUBIN,TOTAL 0.5 MG/DL (0.3-1.2); BLOOD UREA NITROGEN 33 MG/DL (9-23); CALCIUM LEVEL 8.9 MG/DL (8.3-10.6); CARBON DIOXIDE LEVEL 24 MMOL/L (20-31); CHLORIDE LEVEL 107 MMOL/L (98-107); CHOLESTEROL LEVEL 100 MG/DL (<200); CHOLESTEROL RISK RATIO 2.08 (<5); CREATININE FOR GFR 1.23 MG/DL (0.70-1.30); GLOMERULAR FILTRATION RATE > 60.0 (>35); GLUCOSE, FASTING 111 MG/DL (74-106); HEMOGLOBIN A1c 5.8 % (4.0-6.0); LDL CHOLESTEROL 33.6 MG/DL (<100); POTASSIUM SERUM 4.4 MMOL/L (3.5-5.1); SODIUM LEVEL 138 MMOL/L (136-145); TOTAL PROTEIN 7.2 G/DL (5.7-8.2); TRIGLYCERIDES LEVEL 92 MG/DL (<150)
[2022-10-24 12:15] LABS: TOTAL 25(OH) VITAMIN D 39.8 NG/ML (20.0-100.0)
[2022-10-24 18:16] LABS: PTH INTACT 28.2 PG/ML (18.5-88.0)
== END ==
LOC: M PLALAB 07:55
PROVIDERS: ATTEND Family Medicine
DX: E78.2 Mixed hyperlipidemia (principal); Z12.5 Encounter for screening for malignant neoplasm of prostate; D47.2 Monoclonal gammopathy; R73.01 Impaired fasting glucose; Z79.899 Other long term (current) drug therapy
CPT/HCPCS: 36415; 80053; 80061; 82306; 82570; 83036; 83970; 84155; 84156; 84165; 84439; 84443; G0103

== ENCOUNTER → 2023-05-14 | Outpatient (CLI) | payer MEDICARE ==
[2023-05-14 10:51] LABS: HEMATOCRIT 36.8 % (42.0-52.0); HEMOGLOBIN 12.1 g/dl (13.5-17.5); MEAN CORPUSCULAR HEMOGLOBIN 31.8 pg (27.0-33.0); MEAN CORPUSCULAR HGB CONC 32.9 g/dl (32.0-36.5); MEAN CORPUSCULAR VOLUME 96.6 fl (80.0-96.0); PLATELET COUNT, AUTOMATED 235 10^3/uL (150-450); RED BLOOD COUNT 3.81 10^6/uL (4.30-6.10); WHITE BLOOD COUNT 6.6 10^3/uL (4.0-10.0)
[2023-05-14 11:19] LABS: ALBUMIN 3.5 G/DL (3.2-5.2); BILIRUBIN,TOTAL 0.4 MG/DL (0.3-1.2); CREATININE FOR GFR 1.24 MG/DL (0.70-1.30); GLOMERULAR FILTRATION RATE 59.6 (>35); POTASSIUM SERUM 3.8 MMOL/L (3.5-5.1)
[2023-05-14 11:22] LABS: FERRITIN 31.1 NG/ML (10.5-307.3)
[2023-05-15 18:07] LABS: FREE KAPPA LIGHT CHAINS SERUM 49.6 mg/L (3.3-19.4); FREE LAMBDA LIGHT CHAINS SERUM 23.9 mg/L (5.7-26.3); KAPPA/LAMBDA RATIO SERUM 2.08 (0.26-1.65)
== END ==
LOC: M PLALAB 08:16
PROVIDERS: ATTEND Family Medicine
DX: I10 Essential (primary) hypertension (principal); D47.2 Monoclonal gammopathy

== ENCOUNTER → 2023-05-17 | Outpatient (REF) | payer MEDICARE | LOC: M SFHCPLAZ 11:38 | PROVIDERS: ATTEND Family Medicine | DX: D50.9 Iron deficiency anemia, unspecified (principal); R73.01 Impaired fasting glucose; Z12.5 Encounter for screening for malignant neoplasm of prostate ==

== ENCOUNTER → 2023-11-08 | Outpatient (CLI) | payer MEDICARE ==
[2023-11-08 12:24] LABS: PSA SCREENING 2.31 NG/ML (< 4.00)
[2023-11-08 12:52] LABS: BASO % 0.5 % (0.0-1.0); EOS # 0.2 10^3/uL (0.0-0.5); EOS % 3.2 % (0.0-3.0); HEMATOCRIT 37.1 % (42.0-52.0); HEMATOCRIT 37.4 % (42.0-52.0); HEMOGLOBIN 12.2 g/dl (13.5-17.5); LYMPH # 1.3 10^3/uL (1.5-5.0); LYMPH % 20.2 % (24.0-44.0); MEAN CORPUSCULAR HEMOGLOBIN 32.5 pg (27.0-33.0); MEAN CORPUSCULAR HGB CONC 32.9 g/dl (32.0-36.5); MEAN CORPUSCULAR VOLUME 98.9 fl (80.0-96.0); MONO # 0.5 10^3/uL (0.0-0.8); MONO % 8.3 % (2.0-8.0); NEUTROPHILS # 4.2 10^3/uL (1.5-8.5); NEUTROPHILS % 67.5 % (36.0-66.0); PLATELET COUNT, AUTOMATED 301 10^3/uL (150-450); RED BLOOD COUNT 3.75 10^6/uL (4.30-6.10); WHITE BLOOD COUNT 6.2 10^3/uL (4.0-10.0)
[2023-11-08 13:05] LABS: HEMOGLOBIN A1c 5.5 % (4.0-6.0)
== END ==
LOC: M PLALAB 07:28
PROVIDERS: ATTEND Family Medicine
DX: D50.9 Iron deficiency anemia, unspecified (principal); Z12.5 Encounter for screening for malignant neoplasm of prostate; R73.01 Impaired fasting glucose
CPT/HCPCS: 36415; 82607; 82728; 82747; 83036; 84155; 84165; 85025; 86364; G0103

== ENCOUNTER → 2024-05-05 | Outpatient (CLI) | payer MEDICARE ==
[2024-05-05 11:00] LABS: BASO % 0.6 % (0.0-1.0); EOS # 0.3 10^3/uL (0.0-0.5); EOS % 4.9 % (0.0-3.0); HEMATOCRIT 35.5 % (42.0-52.0); HEMOGLOBIN 11.9 g/dl (13.5-17.5); LYMPH # 1.3 10^3/uL (1.5-5.0); LYMPH % 25.1 % (24.0-44.0); MEAN CORPUSCULAR HEMOGLOBIN 32.9 pg (27.0-33.0); MEAN CORPUSCULAR HGB CONC 33.5 g/dl (32.0-36.5); MEAN CORPUSCULAR VOLUME 98.1 fl (80.0-96.0); MONO # 0.6 10^3/uL (0.0-0.8); MONO % 11.2 % (2.0-8.0); NEUTROPHILS # 3.1 10^3/uL (1.5-8.5); PLATELET COUNT, AUTOMATED 248 10^3/uL (150-450); RED BLOOD COUNT 3.62 10^6/uL (4.30-6.10); WHITE BLOOD COUNT 5.3 10^3/uL (4.0-10.0)
[2024-05-05 11:22] LABS: ALBUMIN 3.7 G/DL (3.2-5.2); ALKALINE PHOSPHATASE 67 U/L (46-116); ALT/SGPT 15 U/L (7.0-40); AST/SGOT 13 U/L (<34); BILIRUBIN,TOTAL 0.5 MG/DL (0.3-1.2); BLOOD UREA NITROGEN 33 MG/DL (9-23); CALCIUM LEVEL 9.2 MG/DL (8.3-10.6); CARBON DIOXIDE LEVEL 26 MMOL/L (20-31); CHLORIDE LEVEL 108 MMOL/L (98-107); CREATININE FOR GFR 1.22 MG/DL (0.70-1.30); GLOMERULAR FILTRATION RATE > 60.0 (>35); GLUCOSE, FASTING 128 MG/DL (74-106); SODIUM LEVEL 137 MMOL/L (136-145); TOTAL PROTEIN 7.3 G/DL (5.7-8.2)
[2024-05-05 11:24] LABS: FERRITIN 24.8 NG/ML (10.5-307.3)
[2024-05-05 11:30] LABS: HEMOGLOBIN A1c 5.8 % (4.0-6.0)
[2024-05-06 20:57] LABS: T P ELECTROPHORESIS SO 7.1 g/dL (6.1-8.1)
== END ==
LOC: M PLALAB 07:05
PROVIDERS: ATTEND Family Medicine
DX: I10 Essential (primary) hypertension (principal); D50.9 Iron deficiency anemia, unspecified

== ENCOUNTER → 2024-10-26 | Outpatient (CLI) | payer MEDICARE ==
[2024-10-26 10:42] LABS: PSA SCREENING 2.39 NG/ML (< 4.00)
[2024-10-26 10:44] LABS: BASO % 0.5 % (0.0-1.0); EOS # 0.2 10^3/uL (0.0-0.5); EOS % 3.3 % (0.0-3.0); HEMATOCRIT 35.4 % (42.0-52.0); HEMOGLOBIN 11.7 g/dl (13.5-17.5); LYMPH # 1.2 10^3/uL (1.5-5.0); LYMPH % 20.9 % (24.0-44.0); MEAN CORPUSCULAR HEMOGLOBIN 31.9 pg (27.0-33.0); MEAN CORPUSCULAR HGB CONC 33.1 g/dl (32.0-36.5); MEAN CORPUSCULAR VOLUME 96.5 fl (80.0-96.0); MONO # 0.5 10^3/uL (0.0-0.8); MONO % 8.2 % (2.0-8.0); NEUTROPHILS # 3.8 10^3/uL (1.5-8.5); NEUTROPHILS % 66.9 % (36.0-66.0); PLATELET COUNT, AUTOMATED 238 10^3/uL (150-450); RED BLOOD COUNT 3.67 10^6/uL (4.30-6.10); WHITE BLOOD COUNT 5.7 10^3/uL (4.0-10.0)
[2024-10-26 10:45] LABS: ALBUMIN 3.6 G/DL (3.2-5.2); BILIRUBIN,TOTAL 0.5 MG/DL (0.3-1.2); CHOLESTEROL RISK RATIO 2.16 (<5); CREATININE FOR GFR 1.26 MG/DL (0.70-1.30); FREE T4 1.24 NG/DL (0.89-1.76); GLOMERULAR FILTRATION RATE 56.6 (>35); HDL CHOLESTEROL 40.6 MG/DL (>40); LDL CHOLESTEROL 27.4 MG/DL (<100); NON-HDL-C 47.4 MG/DL; POTASSIUM SERUM 4.5 MMOL/L (3.5-5.1); TOTAL PROTEIN 7.3 G/DL (5.7-8.2)
[2024-10-26 10:46] LABS: THYROID STIMULATING HORMONE 4.076 uIU/ML (0.55-4.78)
[2024-10-26 10:47] LABS: FERRITIN 19.7 NG/ML (10.5-307.3)
[2024-10-26 10:58] LABS: HEMOGLOBIN A1c 5.8 % (4.0-6.0)
[2024-10-27 09:32] LABS: PROTEIN, TOTAL SO 7.2 g/dL (6.1-8.1)
[2024-10-27 14:46] LABS: ALBUMIN SO 3.8 g/dL (3.8-4.8); ALPHA 1 GLOBULINS SO 0.3 g/dL (0.2-0.3); ALPHA 2 GLOBULINS SO 0.8 g/dL (0.5-0.9); BETA 2 GLOBULIN SO 0.3 g/dL (0.2-0.5); BETA GLOBULIN SO 0.4 g/dL (0.4-0.6); GAMMA GLOBULINS SO 1.6 g/dL (0.8-1.7); SPEP IFE ABN PROTEIN BAND 1 1.4 g/dL (NONE DETECTED)
== END ==
LOC: M PLALAB 06:55
PROVIDERS: ATTEND Family Medicine
DX: D50.9 Iron deficiency anemia, unspecified (principal); I10 Essential (primary) hypertension; R73.01 Impaired fasting glucose; Z12.5 Encounter for screening for malignant neoplasm of prostate; E78.2 Mixed hyperlipidemia; D47.2 Monoclonal gammopathy
CPT/HCPCS: 36415; 80053; 80061; 82728; 83036; 84155; 84165; 84439; 84443; 85025; G0103

== ENCOUNTER → 2025-01-26 | Outpatient (CLI) | payer MEDICARE ==
[~2025-01-26] MED LIST changes: -FLOM0.4C39 PO; +TAMS-18 PO
== END ==
LOC: M WUC 11:31
PROVIDERS: ATTEND Physician Assistant
DX: R05.9 Cough, unspecified (principal); R06.02 Shortness of breath

== ENCOUNTER → 2025-02-04 | Outpatient (CLI) | payer MEDICARE ==
[2025-02-04 18:39] LABS: PLATELET COUNT, AUTOMATED 256 10^3/uL (150-450)
[2025-02-04 19:10] LABS: ALT/SGPT 17.0 U/L (7.0-40); AST/SGOT 17.0 U/L (<34); CALCIUM LEVEL 9.1 MG/DL (8.3-10.6); CARBON DIOXIDE LEVEL 25.0 MMOL/L (20-31); CHLORIDE LEVEL 101.0 MMOL/L (98-107); CREATININE FOR GFR 1.38 MG/DL (0.70-1.30); GLOMERULAR FILTRATION RATE 50.7 (>35); POTASSIUM SERUM 4.4 MMOL/L (3.5-5.1); SODIUM LEVEL 137.0 MMOL/L (136-145)
== END ==
LOC: M PLAIMG 14:29
PROVIDERS: ATTEND Nurse Practitioner Adult Health
DX: R09.89 Other specified symptoms and signs involving the circulatory and respiratory systems (principal); R03.1 Nonspecific low blood-pressure reading

== ENCOUNTER 2025-02-15 20:22 | Inpatient (IN) | payer MEDICARE ==
[~2025-02-15] VITALS: TEMP 97.1; Ht 170.2 cm; Wt 69.4 kg
[2025-02-15] MEDS ORDERED: ISOVUE-370 76% 100 ML VIAL As Ordered ONE (21:18)
[2025-02-15 21:40] LABS: BASO # 0.0 10^3/uL (0.0-0.2); BASO % 0.3 % (0.0-1.0); EOS # 0.1 10^3/uL (0.0-0.5); EOS % 1.7 % (0.0-3.0); LYMPH # 1.1 10^3/uL (1.5-5.0); LYMPH % 19.0 % (24.0-44.0); MONO # 0.6 10^3/uL (0.0-0.8); MONO % 9.8 % (2.0-8.0); NEUTROPHILS # 4.0 10^3/uL (1.5-8.5); NEUTROPHILS % 69.0 % (36.0-66.0); PLATELET COUNT, AUTOMATED 220 10^3/uL (150-450)
[2025-02-15 21:52] LABS: INR 0.89
[2025-02-15] MEDS ORDERED: ROSU10TA61 PO (23:04)
[2025-02-15] MEDS ORDERED: SPIR-10 PO (23:04)
[2025-02-15] MEDS ORDERED: LISI40TA10 PO (23:04)
[2025-02-15] MEDS ORDERED: LEXA5TAB13 PO (23:04)
[2025-02-15] MEDS ORDERED: AMLO2.5T3 PO (23:04)
[2025-02-15] MEDS ORDERED: CHLO125TA PO (23:05)
[2025-02-15] MEDS ORDERED: HOME MED LIST COMPLETE! XX SCH (23:05)
[2025-02-16] VITALS (10 sets, daily range): BP systolic 120–186; BP diastolic 58–87; TEMP 97.1–98.1; O2SAT 92–97
[2025-02-16] MEDS: ATORVASTATIN 20 MG TAB PO SCH
[2025-02-16] MEDS: TAMSULOSIN 0.4 MG CAP PO SCH
[2025-02-16] MEDS ORDERED: DEXTROSE 50% 50 ML SYRINGE IV PRN (00:35)
[2025-02-16] MEDS ORDERED: GLUCAGON INJ 1 MG VIAL SC PRN (00:35)
[2025-02-16] MEDS ORDERED: GLUCOSE 4 GM CHEW PO PRN (00:35)
[2025-02-16 00:42] LABS: ALT/SGPT 19.0 U/L (7.0-40); AST/SGOT 18.0 U/L (<34); CALCIUM LEVEL 8.6 MG/DL (8.3-10.6); CARBON DIOXIDE LEVEL 22.0 MMOL/L (20-31); CHLORIDE LEVEL 102.0 MMOL/L (98-107); CREATININE FOR GFR 0.98 MG/DL (0.70-1.30); GLOMERULAR FILTRATION RATE 76.5 (>35); MAGNESIUM LEVEL 1.9 MG/DL (1.8-2.4); PHOSPHORUS LEVEL 3.2 MG/DL (2.4-5.1); POTASSIUM SERUM 4.3 MMOL/L (3.5-5.1); SODIUM LEVEL 138.0 MMOL/L (136-145)
[2025-02-16] MEDS: NS (Normal Saline) 0.9% 1,000 ML IV SCH (01:31)
[2025-02-16 04:48] LABS: PLATELET COUNT, AUTOMATED 222 10^3/uL (150-450)
[2025-02-16 05:01] LABS: ESTIMATED AVERAGE GLUCOSE 120.0 MG/DL (60-110)
[2025-02-16 05:12] LABS: CALCIUM LEVEL 8.7 MG/DL (8.3-10.6); CARBON DIOXIDE LEVEL 23.0 MMOL/L (20-31); CHLORIDE LEVEL 103.0 MMOL/L (98-107); CREATININE FOR GFR 0.93 MG/DL (0.70-1.30); GLOMERULAR FILTRATION RATE 81.5 (>35); MAGNESIUM LEVEL 1.9 MG/DL (1.8-2.4); POTASSIUM SERUM 4.3 MMOL/L (3.5-5.1); SODIUM LEVEL 140.0 MMOL/L (136-145)
[2025-02-16] MEDS: INSULIN LISPRO (NovoLOG) PER UNIT SC SCH (07:30)
[2025-02-16] MEDS: SPIRONOLACTONE 25 MG TAB PO SCH (08:38)
[2025-02-16] MEDS: CLOPIDOGREL 75 MG TAB PO SCH (08:38)
[2025-02-16] MEDS: HEPARIN SOD 5000 UNITS/ML 1 ML VIAL/SYRINGE SQ SCH (08:38)
[2025-02-16 16:14] LABS: CHOLESTEROL LEVEL 87.0 MG/DL (<200); CHOLESTEROL RISK RATIO 1.72 (<5); LDL CHOLESTEROL 26.3 MG/DL (<100); NON-HDL-C 36.5 MG/DL; TRIGLYCERIDES LEVEL 51.0 MG/DL (<150)
[2025-02-16] MEDS ORDERED: HEPARIN SOD 5000 UNITS/ML 1 ML VIAL/SYRINGE SQ SCH (21:00)
== END 2025-02-16 19:50 | disposition other institution (70) | DRG 54 ==
LOC: M ED 20:22 → M ED INP 02-16 00:22 → M ICU 02-16 02:01
PROVIDERS: ADMIT Student in an Organized Health Care Education/Training Program; ATTEND Student in an Organized Health Care Education/Training Program
DX: C71.9 Malignant neoplasm of brain, unspecified (principal); G93.6 Cerebral edema; G93.5 Compression of brain; D64.9 Anemia, unspecified; E11.9 Type 2 diabetes mellitus without complications; I10 Essential (primary) hypertension; N40.0 Benign prostatic hyperplasia without lower urinary tract symptoms; Z66 Do not resuscitate; Z79.899 Other long term (current) drug therapy; Z79.82 Long term (current) use of aspirin

== ENCOUNTER 2025-02-25 15:09 | Inpatient (IN) | payer MEDICARE ==
[~2025-02-25] VITALS: Ht 170.2 cm; Wt 67.6 kg
[~2025-02-25 15:09] MED LIST changes: +AMLO2.5T3 PO; +CHLO125TA PO; +LEXA5TAB13 PO; +LISI40TA10 PO; +ROSU10TA61 PO; +SPIR-10 PO
[2025-02-25] MEDS ORDERED: MOM 30 ML SUSPENSION UDC PO PRN (15:15)
[2025-02-25] MEDS ORDERED: MAALOX 30 ML SUSP *UDC PO PRN (15:15)
[2025-02-25] MEDS ORDERED: BISACODYL 10 MG SUPP PR PRN (15:15)
[2025-02-25] MEDS ORDERED: BISACODYL 5 MG TAB PO PRN (15:15)
[2025-02-25] MEDS ORDERED: SIMETHICONE 80MG CHEW TAB PO PRN (15:15)
[2025-02-25] MEDS ORDERED: ONDANSETRON 4MG ORAL DISINTEGRATING TAB PO PRN (15:25)
[2025-02-25] MEDS ORDERED: GLUCAGON INJ 1 MG VIAL SC PRN (15:25)
[2025-02-25] MEDS ORDERED: **hydrALAZINE HCL** 25 MG TAB PO PRN (15:25)
[2025-02-25] MEDS ORDERED: MUPIROCIN 2% OINT 22 GM TUBE TOP PRN (15:25)
[2025-02-25] MEDS ORDERED: GLUCOSE 4 GM CHEW PO PRN (15:25)
[2025-02-25] MEDS ORDERED: BENZONATATE 100 MG CAPSULE PO PRN (15:25)
[2025-02-25] MEDS ORDERED: DEXTROSE 50% 50 ML SYRINGE IV PRN (15:25)
[2025-02-25 16:10] VITALS: BP 148/68; TEMP 99.9; O2SAT 97
[2025-02-25] MEDS ORDERED: AMLO1TAB24 PO (17:03)
[2025-02-25] MEDS ORDERED: ASPI81CH33 PO (17:03)
[2025-02-25] MEDS ORDERED: ACET-907 PO (17:03)
[2025-02-25] MEDS ORDERED: BENZ-18 PO (17:18)
[2025-02-25] MEDS ORDERED: FERR1TAB8 PO (17:18)
[2025-02-25] MEDS ORDERED: SENN-188 PO (17:18)
[2025-02-25] MEDS ORDERED: HEPARIN 5000 UNIT/ML SC (17:18)
[2025-02-25] MEDS ORDERED: MUPI2OI TOP (17:20)
[2025-02-25] MEDS: INSULIN LISPRO (NovoLOG) PER UNIT SC SCH (17:23)
[2025-02-25] MEDS ORDERED: HOME MED LIST COMPLETE! XX SCH (17:25)
[2025-02-25] MEDS ORDERED: MED REC COMMENT (17:26)
[2025-02-25 20:00] VITALS: BP 123/58; TEMP 99; O2SAT 97
[2025-02-25] MEDS: DOCUSATE SODIUM 100 MG CAPSULE PO SCH (21:12)
[2025-02-25] MEDS: ROSUVASTATIN 10 MG TAB PO SCH (21:12)
[2025-02-25] MEDS: guaiFENesin ER TABLET 600 MG TAB PO SCH (21:13)
[2025-02-25] MEDS: SENNA 8.6 MG TAB PO SCH (21:13)
[2025-02-25] MEDS: TAMSULOSIN 0.4 MG CAP PO SCH (21:13)
[2025-02-25] MEDS: HEPARIN SOD 5000 UNITS/ML 1 ML VIAL/SYRINGE SC SCH (21:14)
[2025-02-26 04:00] VITALS: BP 109/59; TEMP 97.6; O2SAT 99
[2025-02-26 06:40] LABS: BASO # 0.0 10^3/uL (0.0-0.2); BASO % 0.1 % (0.0-1.0); EOS # 0.2 10^3/uL (0.0-0.5); EOS % 2.2 % (0.0-3.0); LYMPH # 1.0 10^3/uL (1.5-5.0); LYMPH % 14.6 % (24.0-44.0); MONO # 0.9 10^3/uL (0.0-0.8); MONO % 12.7 % (2.0-8.0); NEUTROPHILS # 4.7 10^3/uL (1.5-8.5); NEUTROPHILS % 69.5 % (36.0-66.0); PLATELET COUNT, AUTOMATED 297 10^3/uL (150-450)
[2025-02-26 07:15] LABS: ALT/SGPT 23.0 U/L (7.0-40); AST/SGOT 19.0 U/L (<34); CALCIUM LEVEL 8.4 MG/DL (8.3-10.6); CARBON DIOXIDE LEVEL 28.0 MMOL/L (20-31); CHLORIDE LEVEL 96.0 MMOL/L (98-107); CREATININE FOR GFR 0.93 MG/DL (0.70-1.30); GLOMERULAR FILTRATION RATE 81.5 (>35); POTASSIUM SERUM 3.8 MMOL/L (3.5-5.1); SODIUM LEVEL 134.0 MMOL/L (136-145)
[2025-02-26] MEDS: CHLORTHALIDONE 12.5 MG PER 1/2 TABLET PO SCH (09:00)
[2025-02-26] MEDS: SPIRONOLACTONE 25 MG TAB PO SCH (09:00)
[2025-02-26] MEDS: ASPIRIN 81 MG ENTERIC TABLET PO SCH (10:25)
[2025-02-26] MEDS: POTASSIUM CHLORIDE 10MEQ SR TABLET PO SCH (10:25)
[2025-02-26] MEDS: ESCITALOPRAM OXALATE 5 MG TABLET PO SCH (10:26)
[2025-02-26] MEDS: OMEPRAZOLE 20MG CAP PO SCH (10:26)
[2025-02-26 12:00] VITALS: BP 111/56; TEMP 99.7; O2SAT 96
[2025-02-26 19:55] VITALS: BP 134/64; TEMP 98.9; O2SAT 95
[2025-02-27] MEDS: ACETAMINOPHEN 500 MG TAB PO PRN (01:25)
[2025-02-27 04:08] VITALS: BP 120/60; TEMP 98.2; O2SAT 96
[2025-02-27] MEDS: FERROUS GLUCONATE 324 MG TAB PO SCH (09:25)
[2025-02-27 12:00] VITALS: BP 105/51; TEMP 98.6; O2SAT 98
[2025-02-27 19:26] VITALS: BP 125/57; TEMP 98.4; O2SAT 95
[2025-02-28 03:46] VITALS: BP 94/52; TEMP 97.5; O2SAT 95
[2025-02-28 08:12] VITALS: BP 80/40
[2025-02-28 09:41] VITALS: BP 110/60
[2025-02-28 12:00] VITALS: BP 101/55; TEMP 97.7; O2SAT 95
[2025-02-28 19:59] VITALS: BP 99/56; TEMP 97.9; O2SAT 96
[2025-03-01 03:30] VITALS: BP 94/48; TEMP 97.4; O2SAT 94
[2025-03-01 11:38] VITALS: BP 111/57; TEMP 98.7; O2SAT 95
[2025-03-01 20:00] VITALS: BP 98/34; TEMP 99.5; O2SAT 95
[2025-03-01 20:30] VITALS: BP 104/52
[2025-03-02 04:00] VITALS: BP 102/55; TEMP 97.9; O2SAT 91
[2025-03-02 11:46] VITALS: BP 102/50; TEMP 98.3; O2SAT 94
[2025-03-02] MEDS ORDERED: guaiFENesin ER TABLET 600 MG TAB PO PRN (14:30)
[2025-03-02 15:01] LABS: BASO # 0.0 10^3/uL (0.0-0.2); BASO % 0.1 % (0.0-1.0); EOS # 0.0 10^3/uL (0.0-0.5); EOS % 0.0 % (0.0-3.0); LYMPH # 0.6 10^3/uL (1.5-5.0); LYMPH % 2.5 % (24.0-44.0); MONO # 1.3 10^3/uL (0.0-0.8); MONO % 5.1 % (2.0-8.0); NEUTROPHILS # 23.0 10^3/uL (1.5-8.5); NEUTROPHILS % 91.0 % (36.0-66.0); PLATELET COUNT, AUTOMATED 303 10^3/uL (150-450)
[2025-03-02 15:25] LABS: CALCIUM LEVEL 8.2 MG/DL (8.3-10.6); CARBON DIOXIDE LEVEL 25.0 MMOL/L (20-31); CHLORIDE LEVEL 101.0 MMOL/L (98-107); CREATININE FOR GFR 1.24 MG/DL (0.70-1.30); GLOMERULAR FILTRATION RATE 57.7 (>35); POTASSIUM SERUM 4.1 MMOL/L (3.5-5.1); SODIUM LEVEL 135.0 MMOL/L (136-145)
[2025-03-02] MEDS: ANUSOL HC 25 MG SUPP PR ONE (16:29)
[2025-03-02] MEDS: NS (Normal Saline) 0.9% 1,000 ML IV SCH (18:32)
[2025-03-02 19:09] LABS: KETONE, URINE AUTO RFX NEGATIVE (NEGATIVE); MUCUS, URINE RFX SMALL (NEGATIVE); NITRITE, URINE AUTO RFX NEGATIVE (NEGATIVE); RBC, URINE AUTO RFX 98 /HPF (0-3); SQUAM EPITHELIAL CELL UR AURFX 0 /HPF (0-6)
[2025-03-02 19:25] LABS: LEUKOCYTE ESTERASE UR AUTO RFX 1+ (NEGATIVE); WBC, URINE AUTO RFX 53 /HPF (0-3)
[2025-03-02 20:00] VITALS: BP 110/52; TEMP 98.9; O2SAT 97
[2025-03-02] MEDS: traZODone 50 MG TAB PO PRN (20:16)
[2025-03-02] MEDS: SENNA 8.6 MG TAB PO SCH (20:17)
[2025-03-03 04:00] VITALS: BP_SYST 113; BP_SYST 133; BP_DIAS 64; BP_DIAS 67; TEMP 98.4; O2SAT 91; O2SAT 98
[2025-03-03 07:47] LABS: BASO # 0.0 10^3/uL (0.0-0.2); BASO % 0.1 % (0.0-1.0); EOS # 0.0 10^3/uL (0.0-0.5); EOS % 0.2 % (0.0-3.0); LYMPH # 0.7 10^3/uL (1.5-5.0); LYMPH % 5.3 % (24.0-44.0); MONO # 0.8 10^3/uL (0.0-0.8); MONO % 5.9 % (2.0-8.0); NEUTROPHILS # 11.6 10^3/uL (1.5-8.5); NEUTROPHILS % 87.7 % (36.0-66.0); PLATELET COUNT, AUTOMATED 287 10^3/uL (150-450)
[2025-03-03 08:13] LABS: CALCIUM LEVEL 8.6 MG/DL (8.3-10.6); CARBON DIOXIDE LEVEL 24.0 MMOL/L (20-31); CHLORIDE LEVEL 107.0 MMOL/L (98-107); CREATININE FOR GFR 0.95 MG/DL (0.70-1.30); GLOMERULAR FILTRATION RATE 79.4 (>35); MAGNESIUM LEVEL 1.7 MG/DL (1.8-2.4); POTASSIUM SERUM 3.9 MMOL/L (3.5-5.1); SODIUM LEVEL 142.0 MMOL/L (136-145)
[2025-03-03] MEDS: cefTRIAXone SOD 2 GM in DEXTROSE 5% (D5W) ADV/MINI-BAG 50 ML IV SCH (08:59)
[2025-03-03 12:00] VITALS: BP 97/71; TEMP 98.6; O2SAT 93
[2025-03-03 19:36] VITALS: BP 138/63; TEMP 97.4; O2SAT 93
[2025-03-04 03:38] VITALS: BP 123/58; TEMP 98; O2SAT 92
[2025-03-04] MEDS: HEPARIN SOD 5000 UNITS/ML 1 ML VIAL/SYRINGE SQ SCH (08:29)
[2025-03-04 09:43] LABS: BASO # 0.0 10^3/uL (0.0-0.2); BASO % 0.2 % (0.0-1.0); EOS # 0.1 10^3/uL (0.0-0.5); EOS % 1.0 % (0.0-3.0); LYMPH # 0.7 10^3/uL (1.5-5.0); LYMPH % 7.7 % (24.0-44.0); MONO # 0.6 10^3/uL (0.0-0.8); MONO % 7.0 % (2.0-8.0); NEUTROPHILS # 7.6 10^3/uL (1.5-8.5); NEUTROPHILS % 83.7 % (36.0-66.0); PLATELET COUNT, AUTOMATED 312 10^3/uL (150-450)
[2025-03-04 09:55] LABS: CALCIUM LEVEL 8.3 MG/DL (8.3-10.6); CARBON DIOXIDE LEVEL 22.0 MMOL/L (20-31); CHLORIDE LEVEL 104.0 MMOL/L (98-107); CREATININE FOR GFR 1.08 MG/DL (0.70-1.30); GLOMERULAR FILTRATION RATE 68.1 (>35); MAGNESIUM LEVEL 1.6 MG/DL (1.8-2.4); POTASSIUM SERUM 3.5 MMOL/L (3.5-5.1); SODIUM LEVEL 140.0 MMOL/L (136-145)
[2025-03-04 12:00] VITALS: BP 113/55; TEMP 98.6; O2SAT 97
[2025-03-04] MEDS ORDERED: TRAZ-252 PO (14:38)
[2025-03-04] MEDS ORDERED: FERR32TA PO (14:38)
[2025-03-04] MEDS ORDERED: TAMS-18 PO (14:38)
[2025-03-04] MEDS ORDERED: METF-838 PO (14:38)
[2025-03-04] MEDS ORDERED: OMEP-173 PO (14:38)
[2025-03-04] MEDS ORDERED: CHLO125TA PO (14:38)
[2025-03-04] MEDS ORDERED: CEFD1CAP9 PO (14:38)
[2025-03-04] MEDS: MAG SULF 1GM/100ML (MAG RUN) 1 GM in IV 1 EA IV SCH (15:24)
[2025-03-04 19:42] VITALS: BP 119/58; TEMP 97.5; O2SAT 96
[2025-03-05 03:50] VITALS: BP 144/64; TEMP 96.2; O2SAT 95
[2025-03-05 09:13] VITALS: BP 123/60; TEMP 97.7; O2SAT 96
[2025-03-05 11:55] VITALS: BP 106/53; TEMP 98.8; O2SAT 95
[2025-03-05 19:15] VITALS: BP 110/50; TEMP 97; O2SAT 95
[2025-03-05 20:00] VITALS: BP 102/53; TEMP 97.7; O2SAT 95
[2025-03-06 04:00] VITALS: BP 110/55; TEMP 98.7; O2SAT 96
[2025-03-06 12:08] VITALS: BP 129/60; TEMP 97.7; O2SAT 97
[2025-03-06 20:00] VITALS: BP 145/67; TEMP 98.9; O2SAT 97
[2025-03-07 03:30] VITALS: BP 153/67; TEMP 100.4; O2SAT 93
[2025-03-07 04:23] VITALS: TEMP 98.6; O2SAT 93
[2025-03-07 12:05] VITALS: BP 127/56; TEMP 100.2; O2SAT 97
[2025-03-07 16:00] VITALS: TEMP 98.6
[2025-03-07 19:35] VITALS: BP 141/63; TEMP 98.7; O2SAT 92
[2025-03-08 06:11] VITALS: BP 121/59; TEMP 97.4; O2SAT 91
[2025-03-08 09:00] VITALS: BP 98/54
[2025-03-08 09:44] VITALS: BP 98/54; TEMP 98.2; O2SAT 91
[2025-03-08 11:33] VITALS: BP 118/56; TEMP 98.5; O2SAT 94
[2025-03-19] MEDS ORDERED: FERR324T21 (09:35)
[2025-03-19] MEDS ORDERED: BACT800T5 PO (10:51)
[2025-03-19] MEDS ORDERED: ONDA-84 PO (10:51)
[2025-03-19] MEDS ORDERED: TEMO100C17 PO (11:02)
[2025-03-19] MEDS ORDERED: TEMO20CA21 PO (11:02)
== END 2025-03-08 13:00 | disposition home health service (06) | DRG 54 ==
LOC: UNDOADMIN 16:10 → M PM&R 16:10
PROVIDERS: ADMIT Physical Medicine & Rehabilitation; ATTEND Physical Medicine & Rehabilitation
DX: C71.9 Malignant neoplasm of brain, unspecified (principal); G93.5 Compression of brain; G93.6 Cerebral edema; N39.0 Urinary tract infection, site not specified; E11.65 Type 2 diabetes mellitus with hyperglycemia; F32.A Depression, unspecified; I10 Essential (primary) hypertension; N40.0 Benign prostatic hyperplasia without lower urinary tract symptoms; E78.5 Hyperlipidemia, unspecified; K59.00 Constipation, unspecified; D50.9 Iron deficiency anemia, unspecified; Z79.899 Other long term (current) drug therapy; Z79.82 Long term (current) use of aspirin; Z66 Do not resuscitate; R33.9 Retention of urine, unspecified; G25.0 Essential tremor; R13.12 Dysphagia, oropharyngeal phase; G47.00 Insomnia, unspecified; B96.20 Unspecified Escherichia coli [E. coli] as the cause of diseases classified elsewhere; Z86.73 Personal history of transient ischemic attack (TIA), and cerebral infarction without residual deficits; R05.9 Cough, unspecified; M79.81 Nontraumatic hematoma of soft tissue

== ENCOUNTER → 2025-03-18 | Outpatient (CLI) | payer MEDICARE ==
[~2025-03-18] MED LIST changes: +ACET-907 PO; +AMLO1TAB24 PO; +ASPI81CH33 PO; +BACT800T5 PO; +BENZ-18 PO; +CEFD1CAP9 PO; +FERR1TAB8 PO; +FERR324T21; +FERR32TA PO; +HEPARIN 5000 UNIT/ML SC; +MED REC COMMENT; +MUPI2OI TOP; +OMEP-173 PO; +ONDA-84 PO; +SENN-188 PO; +TEMO100C17 PO; +TEMO20CA21 PO; +TRAZ-252 PO
== END ==
LOC: M ONCR 13:43
PROVIDERS: ATTEND General Practice
DX: C71.2 Malignant neoplasm of temporal lobe (principal); Z98.890 Other specified postprocedural states; Z90.49 Acquired absence of other specified parts of digestive tract; Z79.84 Long term (current) use of oral hypoglycemic drugs; Z79.82 Long term (current) use of aspirin; Z79.899 Other long term (current) drug therapy

== ENCOUNTER → 2025-03-23 | Outpatient (CLI) | payer MEDICARE ==
[~2025-03-23] MED LIST changes: +BACTDSTA; +DEXA4TA PO
== END ==
LOC: M ONCM 13:04
PROVIDERS: ATTEND Dietitian, Registered
DX: C71.2 Malignant neoplasm of temporal lobe (principal); Z71.3 Dietary counseling and surveillance; Z68.22 Body mass index [BMI] 22.0-22.9, adult

== ENCOUNTER → 2025-03-29 | Outpatient (CLI) | payer MEDICARE ==
[~2025-03-29] VITALS: Ht 170.2 cm; Wt 65.3 kg
[~2025-03-29] MED LIST changes: -DEXA4TA PO
[2025-03-29 15:14] VITALS: BP 129/78; O2SAT 96
== END ==
LOC: M PAL 14:34
PROVIDERS: ATTEND Physician Assistant
DX: Z51.5 Encounter for palliative care (principal); Z66 Do not resuscitate; C71.1 Malignant neoplasm of frontal lobe; Z98.890 Other specified postprocedural states; Z92.21 Personal history of antineoplastic chemotherapy; Z92.3 Personal history of irradiation; Z79.891 Long term (current) use of opiate analgesic

== ENCOUNTER 2025-04-09 20:14 | Emergency (ER) | payer MEDICARE, OTHER ==
[~2025-04-09] VITALS: Ht 170.2 cm; Wt 67.3 kg
[~2025-04-09 20:14] MED LIST changes: +DEXA4TA PO; +TEMO100C17
[2025-04-09] MEDS: LIDOCAINE 2% 5 ML JELLY UROJET TOP ONE (22:41)
[2025-04-09 23:00] VITALS: BP 128/63; O2SAT 94
[2025-04-09 23:10] VITALS: TEMP 97.7
[2025-04-13] MEDS ORDERED: TEMO100C17 PO (13:36)
[2025-04-14] MEDS ORDERED: BACTDSTA PO (08:40)
== END 2025-04-09 23:43 | disposition home or self-care (01) ==
LOC: M ED 20:14
DX: R33.9 Retention of urine, unspecified (principal); E11.9 Type 2 diabetes mellitus without complications; I10 Essential (primary) hypertension; E78.5 Hyperlipidemia, unspecified; Z91.048 Other nonmedicinal substance allergy status; Z79.82 Long term (current) use of aspirin; Z79.1 Long term (current) use of non-steroidal anti-inflammatories (NSAID); Z79.4 Long term (current) use of insulin; Z79.84 Long term (current) use of oral hypoglycemic drugs; Z79.899 Other long term (current) drug therapy; Z90.49 Acquired absence of other specified parts of digestive tract

== ENCOUNTER → 2025-04-20 | Outpatient (RCR) | payer MEDICARE ==
[~2025-04-20] MED LIST changes: +BACTDSTA PO
== END ==
LOC: M ONCR 03-31 13:39
PROVIDERS: ATTEND General Practice
DX: Z51.0 Encounter for antineoplastic radiation therapy (principal); C71.2 Malignant neoplasm of temporal lobe

== ENCOUNTER 2025-04-23 08:52 | Outpatient (RCR) | payer MEDICARE ==
[~2025-04-23 08:52] MED LIST changes: -ROSU10TA61 PO; +ROSU10TA90 PO
[2025-05-04] MEDS ORDERED: [UNRECOGNIZED DRUG - CODE] PO (18:23)
[2025-05-10] MEDS ORDERED: DEXA1TA PO (16:35)
[2025-05-10] MEDS ORDERED: DEXA2TA PO (16:35)
== END 2025-05-21 ==
LOC: M ONCR 08:52
PROVIDERS: ATTEND General Practice
DX: Z51.0 Encounter for antineoplastic radiation therapy (principal); C71.2 Malignant neoplasm of temporal lobe

== ENCOUNTER → 2025-04-27 | Outpatient (CLI) | payer MEDICARE ==
[~2025-04-27] MED LIST changes: +ROSU10TA61 PO; -ROSU10TA90 PO
[2025-04-27 12:16] LABS: BASO # 0.0 10^3/uL (0.0-0.2); BASO % 0.2 % (0.0-1.0); EOS # 0.1 10^3/uL (0.0-0.5); EOS % 1.2 % (0.0-3.0); LYMPH # 0.9 10^3/uL (1.5-5.0); LYMPH % 10.0 % (24.0-44.0); MONO # 0.8 10^3/uL (0.0-0.8); MONO % 9.2 % (2.0-8.0); NEUTROPHILS # 7.0 10^3/uL (1.5-8.5); NEUTROPHILS % 78.8 % (36.0-66.0); PLATELET COUNT, AUTOMATED 251 10^3/uL (150-450)
[2025-04-27 13:57] LABS: ESTIMATED AVERAGE GLUCOSE 114.0 MG/DL (60-110)
[2025-04-27 15:01] LABS: FREE T4 1.19 NG/DL (0.89-1.76)
[2025-04-27 15:02] LABS: ALT/SGPT 36.0 U/L (7.0-40); AST/SGOT 21.0 U/L (<34); CALCIUM LEVEL 8.5 MG/DL (8.3-10.6); CARBON DIOXIDE LEVEL 27.0 MMOL/L (20-31); CHLORIDE LEVEL 106.0 MMOL/L (98-107); CREATININE FOR GFR 0.85 MG/DL (0.70-1.30); GLOMERULAR FILTRATION RATE 86.2 (>35); POTASSIUM SERUM 3.4 MMOL/L (3.5-5.1); SODIUM LEVEL 144.0 MMOL/L (136-145)
[2025-04-29 12:02] LABS: FREE KAPPA LIGHT CHAINS SERUM 25.4 mg/L (3.3-19.4); FREE LAMBDA LIGHT CHAINS SERUM 20.9 mg/L (5.7-26.3); KAPPA/LAMBDA RATIO SERUM 1.22 (0.26-1.65)
== END ==
LOC: M PLALAB 08:27
PROVIDERS: ATTEND Family Medicine
DX: D50.9 Iron deficiency anemia, unspecified (principal); I10 Essential (primary) hypertension; E78.2 Mixed hyperlipidemia; R73.01 Impaired fasting glucose; D47.2 Monoclonal gammopathy

== ENCOUNTER 2025-05-17 14:26 | Outpatient (CLI) | payer MEDICARE ==
[~2025-05-17] VITALS: Ht 170.2 cm; Wt 69.5 kg
[~2025-05-17 14:26] MED LIST changes: +ALBUTEROL SULFATE 2.5 MG/0.5 ML INH CONCENTRATE NEB SOLN INH PRN; +DEXA1TA PO; +DEXA2TA PO; +EPINEPHrine INJ 1 MG/ML 1ML AMP IM PRN; +[UNRECOGNIZED DRUG - CODE] PO; +diphenhydrAMINE 50 MG/ML VIAL IV PRN
[2025-05-17 14:50] VITALS: BP 155/81; O2SAT 95
[2025-05-17] MEDS: FERRIC CARBOXYMALTOSE 750 MG (VIAL MATE) IN 100ML NS IV ONE (14:58)
[2025-05-17] MEDS ORDERED: NS IV ONE (15:00)
[2025-05-17] MEDS ORDERED: FERRIC CARBOXYMALTOSE IV ONE (15:00)
[2025-05-17 15:45] VITALS: BP 160/81; O2SAT 96
== END 2025-05-17 15:45 | disposition home or self-care (01) ==
LOC: M INFU 14:26
PROVIDERS: ATTEND Family Medicine
DX: D50.9 Iron deficiency anemia, unspecified (principal); Z91.048 Other nonmedicinal substance allergy status
CPT/HCPCS: 96365; J1439

== ENCOUNTER → 2025-05-18 | Outpatient (CLI) | payer MEDICARE, MEDICAID ==
[~2025-05-18] MED LIST changes: -ALBUTEROL SULFATE 2.5 MG/0.5 ML INH CONCENTRATE NEB SOLN INH PRN; -EPINEPHrine INJ 1 MG/ML 1ML AMP IM PRN; +PROHANCE 279.3MG/ML 15ML VIAL As Ordered ONE; -ROSU10TA61 PO; +ROSU10TA90 PO; -diphenhydrAMINE 50 MG/ML VIAL IV PRN
== END ==
LOC: M RAD 12:48
PROVIDERS: ATTEND Neurological Surgery
DX: C71.9 Malignant neoplasm of brain, unspecified (principal); G93.89 Other specified disorders of brain; Z98.890 Other specified postprocedural states; J32.2 Chronic ethmoidal sinusitis; J32.0 Chronic maxillary sinusitis

== ENCOUNTER 2025-05-22 01:11 | Emergency (ER) | payer MEDICARE, MEDICAID ==
[~2025-05-22] VITALS: Ht 170.2 cm; Wt 67.3 kg
[~2025-05-22 01:11] MED LIST changes: -PROHANCE 279.3MG/ML 15ML VIAL As Ordered ONE
[2025-05-22 03:33] LABS: BASO # 0.0 10^3/uL (0.0-0.2); BASO % 0.0 % (0.0-1.0); EOS # 0.0 10^3/uL (0.0-0.5); EOS % 0.2 % (0.0-3.0); LYMPH # 0.4 10^3/uL (1.5-5.0); LYMPH % 8.0 % (24.0-44.0); MONO # 0.5 10^3/uL (0.0-0.8); MONO % 8.2 % (2.0-8.0); NEUTROPHILS # 4.6 10^3/uL (1.5-8.5); NEUTROPHILS % 83.2 % (36.0-66.0); PLATELET COUNT, AUTOMATED 286 10^3/uL (150-450)
[2025-05-22 03:58] LABS: CALCIUM LEVEL 8.3 MG/DL (8.3-10.6); CARBON DIOXIDE LEVEL 27.0 MMOL/L (20-31); CHLORIDE LEVEL 103.0 MMOL/L (98-107); CREATININE FOR GFR 0.83 MG/DL (0.70-1.30); GLOMERULAR FILTRATION RATE 86.8 (>35); POTASSIUM SERUM 3.3 MMOL/L (3.5-5.1); SODIUM LEVEL 141.0 MMOL/L (136-145)
[2025-05-22 04:46] LABS: APPEARANCE, URINE CLOUDY (CLEAR); BACTERIA, URINE AUTO 2+ (NEGATIVE); BILIRUBIN, URINE AUTO NEGATIVE (NEGATIVE); BLOOD, URINE BLOOD 3+ (NEGATIVE); GLUCOSE, URINE (UA) AUTO 3+ mg/dL (NEGATIVE); KETONE, URINE AUTO NEGATIVE (NEGATIVE); LEUKOCYTE ESTERASE, URINE AUTO 2+ (NEGATIVE); MUCUS, URINE LARGE (NEGATIVE); NITRITE, URINE AUTO NEGATIVE (NEGATIVE); PROTEIN, URINE AUTO 2+ mg/dL (NEGATIVE); RBC, URINE AUTO TNTC /HPF (0-3); SPECIFIC GRAVITY URINE AUTO 1.011 (1.002-1.035); SQUAMOUS EPITHELIAL CELL UR AU 1 /HPF (0-6); UROBILINOGEN, URINE AUTO 0.2 mg/dL (0.0-2.0); WBC, URINE AUTO TNTC /HPF (0-3)
[2025-05-22] MEDS: POTASSIUM CHLORIDE 10% LIQ 20MEQ/15ML UDC PO ONE (05:07)
[2025-05-22 05:30] VITALS: BP 151/72; TEMP 97.5; O2SAT 97
== END 2025-05-22 05:38 | disposition home or self-care (01) ==
LOC: M ED 01:11
DX: T83.091A Other mechanical complication of indwelling urethral catheter, initial encounter (principal); E11.9 Type 2 diabetes mellitus without complications; I10 Essential (primary) hypertension; E78.5 Hyperlipidemia, unspecified; K21.9 Gastro-esophageal reflux disease without esophagitis; F32.A Depression, unspecified; Z91.09 Other allergy status, other than to drugs and biological substances; Z79.1 Long term (current) use of non-steroidal anti-inflammatories (NSAID); Z79.899 Other long term (current) drug therapy; Z79.4 Long term (current) use of insulin

== ENCOUNTER 2025-05-24 13:15 | Inpatient (IN) | payer MEDICARE, MEDICAID ==
[~2025-05-24] VITALS: Ht 170.2 cm; Wt 70.2 kg
[2025-05-24 13:55] LABS: BASO # 0.0 10^3/uL (0.0-0.2); BASO % 0.4 % (0.0-1.0); EOS # 0.0 10^3/uL (0.0-0.5); EOS % 0.4 % (0.0-3.0); LYMPH # 0.2 10^3/uL (1.5-5.0); LYMPH % 7.8 % (24.0-44.0); MONO # 0.2 10^3/uL (0.0-0.8); MONO % 6.7 % (2.0-8.0); NEUTROPHILS # 2.2 10^3/uL (1.5-8.5); NEUTROPHILS % 84.3 % (36.0-66.0); PLATELET COUNT, AUTOMATED 263 10^3/uL (150-450)
[2025-05-24 14:15] LABS: KETONE, URINE AUTO RFX TRACE mg/dL (NEGATIVE); MUCUS, URINE RFX LARGE (NEGATIVE); NITRITE, URINE AUTO RFX NEGATIVE (NEGATIVE); RBC, URINE AUTO RFX TNTC /HPF (0-3); SQUAM EPITHELIAL CELL UR AURFX 1 /HPF (0-6)
[2025-05-24 14:16] LABS: ALT/SGPT 30.0 U/L (7.0-40); AST/SGOT 23.0 U/L (<34); CALCIUM LEVEL 8.1 MG/DL (8.3-10.6); CARBON DIOXIDE LEVEL 28.0 MMOL/L (20-31); CHLORIDE LEVEL 102.0 MMOL/L (98-107); CREATININE FOR GFR 0.79 MG/DL (0.70-1.30); GLOMERULAR FILTRATION RATE 88.2 (>35); POTASSIUM SERUM 3.3 MMOL/L (3.5-5.1); SODIUM LEVEL 141.0 MMOL/L (136-145)
[2025-05-24 14:24] LABS: LEUKOCYTE ESTERASE UR AUTO RFX 1+ (NEGATIVE); WBC, URINE AUTO RFX 152 /HPF (0-3)
[2025-05-24] MEDS ORDERED: AZITHROMYCIN INJ 500 MG, VIAL MATE ADAPTER 1 EACH in D5W 250 ML IV ONE (14:25)
[2025-05-24] MEDS ORDERED: cefTRIAXone SOD 1 GM in DEXTROSE 5% (D5W) ADV/MINI-BAG 50 ML IV ONE (14:25)
[2025-05-24 14:39] LABS: INR 1.12
[2025-05-24] MEDS: LevoFLOXacin IV 750 MG in IV 1 EA IV ONE (14:47)
[2025-05-24 15:00] LABS: C REACTIVE PROTEIN QUANTITATIV 27.2 MG/DL (<1.0)
[2025-05-24] MEDS ORDERED: METF-838 PO (15:15)
[2025-05-24] MEDS ORDERED: NYST1POW3 TOP (15:15)
[2025-05-24] MEDS ORDERED: OMEP-173 PO (15:16)
[2025-05-24] MEDS ORDERED: HOME MED LIST COMPLETE! XX SCH (15:20)
[2025-05-24] MEDS ORDERED: ACETAMINOPHEN 325 MG TAB PO PRN (16:25)
[2025-05-24] MEDS ORDERED: GLUCOSE 4 GM CHEW PO PRN (16:25)
[2025-05-24] MEDS ORDERED: DEXTROSE 50% 50 ML SYRINGE IV PRN (16:25)
[2025-05-24] MEDS ORDERED: GLUCAGON INJ 1 MG VIAL SC PRN (16:25)
[2025-05-24] MEDS: NS (Normal Saline) 0.9% 1,000 ML IV SCH (16:35)
[2025-05-24] MEDS: POTASSIUM CHLORIDE 10MEQ SR TABLET PO ONE (16:36)
[2025-05-24] MEDS ORDERED: ONDANSETRON 4MG TAB PO PRN (17:10)
[2025-05-24] MEDS ORDERED: ISOVUE-370 76% 100 ML VIAL As Ordered ONE (17:16)
[2025-05-24] MEDS: INSULIN LISPRO (NovoLOG) PER UNIT SC SCH ×2 (17:30→21:00)
[2025-05-24] MEDS ORDERED: ONDANSETRON 4MG/2ML VIAL IV PRN (17:35)
[2025-05-24 17:58] VITALS: BP 177/79; TEMP 97.7; O2SAT 92
[2025-05-24] MEDS ORDERED: hydrALAZINE 20 MG/ML 1 ML VIAL IV PRN (18:30)
[2025-05-24 18:47] VITALS: PULSE 97
[2025-05-24] MEDS: ENOXAPARIN 80 MG/0.8 ML SYRINGE (J1650 PER 10MG) SC SCH (19:54)
[2025-05-24 19:56] VITALS: BP 152/78; TEMP 98.6; O2SAT 91
[2025-05-24 21:11] LABS: CK-MB VALUE MASS < 1.0 NG/ML (<3.6)
[2025-05-24 21:13] LABS: CPK CREATINE PHOSPHOKINASE 19 U/L (46-171)
[2025-05-25] VITALS (7 sets, daily range): BP systolic 147–168; BP diastolic 70–88; TEMP 97.1–98.4; O2SAT 92–96
[2025-05-25 05:52] LABS: PLATELET COUNT, AUTOMATED 229 10^3/uL (150-450)
[2025-05-25 06:15] LABS: CALCIUM LEVEL 7.1 MG/DL (8.3-10.6); CARBON DIOXIDE LEVEL 27.0 MMOL/L (20-31); CHLORIDE LEVEL 105.0 MMOL/L (98-107); CREATININE FOR GFR 0.74 MG/DL (0.70-1.30); GLOMERULAR FILTRATION RATE 89.9 (>35); MAGNESIUM LEVEL 1.6 MG/DL (1.8-2.4); POTASSIUM SERUM 3.6 MMOL/L (3.5-5.1); SODIUM LEVEL 140.0 MMOL/L (136-145)
[2025-05-25 06:40] LABS: LYMPHOCYTES 4 % (16-44); MONOCYTES 4 % (0-5); NEUTROPHILS 68 % (28-66)
[2025-05-25 06:42] LABS: PLATELET ESTIMATE NORMAL (NORMAL)
[2025-05-25] MEDS ORDERED: MAG SULF 1GM/100ML (MAG RUN) 1 GM in IV 1 EA IV SCH (07:10)
[2025-05-25] MEDS ORDERED: ENOXAPARIN 40 MG/0.4 ML SYRINGE (J1650 PER 10MG) SC SCH (09:00)
[2025-05-25] MEDS: MAG SULF 1GM/100ML (MAG RUN) 1 GM in IV 1 EA IV SCH (09:10)
[2025-05-25] MEDS: amLODIPine 5 MG TAB PO SCH (09:11)
[2025-05-25] MEDS: ROSUVASTATIN 10 MG TAB PO SCH (09:11)
[2025-05-25] MEDS: ESCITALOPRAM OXALATE 5 MG TABLET PO SCH (09:11)
[2025-05-25] MEDS: LevoFLOXacin IV 750 MG in IV 1 EA IV SCH (18:25)
[2025-05-26] VITALS (14 sets, daily range): BP systolic 130–179; BP diastolic 58–88; TEMP 97–98.4; O2SAT 93–98
[2025-05-26 05:43] LABS: BASO # 0.0 10^3/uL (0.0-0.2); BASO % 0.3 % (0.0-1.0); EOS # 0.0 10^3/uL (0.0-0.5); EOS % 0.5 % (0.0-3.0); LYMPH # 0.2 10^3/uL (1.5-5.0); LYMPH % 5.9 % (24.0-44.0); MONO # 0.4 10^3/uL (0.0-0.8); MONO % 9.6 % (2.0-8.0); NEUTROPHILS # 3.1 10^3/uL (1.5-8.5); NEUTROPHILS % 82.1 % (36.0-66.0); PLATELET COUNT, AUTOMATED 234 10^3/uL (150-450)
[2025-05-26 06:06] LABS: CALCIUM LEVEL 7.2 MG/DL (8.3-10.6); CARBON DIOXIDE LEVEL 25 MMOL/L (20-31); CHLORIDE LEVEL 106 MMOL/L (98-107); CREATININE FOR GFR 0.70 MG/DL (0.70-1.30); GLOMERULAR FILTRATION RATE > 90.0 (>35); MAGNESIUM LEVEL 1.9 MG/DL (1.8-2.4); POTASSIUM SERUM 2.9 MMOL/L (3.5-5.1); SODIUM LEVEL 141 MMOL/L (136-145)
[2025-05-26] MEDS ORDERED: POTASSIUM CHLORIDE 10MEQ SR TABLET PO ONE (07:05)
[2025-05-26] MEDS: KCL 10MEQ/100ML SWI (KRUN) 10 MEQ in IV 1 EA IV SCH (08:59)
[2025-05-26] MEDS: POTASSIUM CHLORIDE 10MEQ SR TABLET PO SCH (09:44)
[2025-05-26 15:12] LABS: CALCIUM LEVEL 7.4 MG/DL (8.3-10.6); CARBON DIOXIDE LEVEL 24.0 MMOL/L (20-31); CHLORIDE LEVEL 110.0 MMOL/L (98-107); CREATININE FOR GFR 0.82 MG/DL (0.70-1.30); GLOMERULAR FILTRATION RATE 87.2 (>35); POTASSIUM SERUM 3.8 MMOL/L (3.5-5.1); SODIUM LEVEL 142.0 MMOL/L (136-145)
[2025-05-26] MEDS: **hydrALAZINE** 10 MG TAB PO SCH (21:45)
[2025-05-27] VITALS (9 sets, daily range): BP systolic 144–176; BP diastolic 67–78; TEMP 98–98.4; O2SAT 75–96
[2025-05-27 07:06] LABS: BASO # 0.0 10^3/uL (0.0-0.2); BASO % 0.5 % (0.0-1.0); EOS # 0.0 10^3/uL (0.0-0.5); EOS % 0.5 % (0.0-3.0); LYMPH # 0.3 10^3/uL (1.5-5.0); LYMPH % 7.6 % (24.0-44.0); MONO # 0.5 10^3/uL (0.0-0.8); MONO % 11.5 % (2.0-8.0); NEUTROPHILS # 3.3 10^3/uL (1.5-8.5); NEUTROPHILS % 76.5 % (36.0-66.0); PLATELET COUNT, AUTOMATED 230 10^3/uL (150-450)
[2025-05-27 07:49] LABS: CALCIUM LEVEL 7.2 MG/DL (8.3-10.6); CARBON DIOXIDE LEVEL 27.0 MMOL/L (20-31); CHLORIDE LEVEL 108.0 MMOL/L (98-107); CREATININE FOR GFR 0.75 MG/DL (0.70-1.30); GLOMERULAR FILTRATION RATE 89.5 (>35); MAGNESIUM LEVEL 1.7 MG/DL (1.8-2.4); POTASSIUM SERUM 2.9 MMOL/L (3.5-5.1); SODIUM LEVEL 141.0 MMOL/L (136-145)
[2025-05-27] MEDS: POTASSIUM CHLORIDE 10MEQ SR TABLET PO SCH (10:36)
[2025-05-27] MEDS: MAGNESIUM OXIDE 400 MG TAB PO SCH (10:36)
[2025-05-27] MEDS: amLODIPine 10 MG TAB PO SCH (10:42)
[2025-05-27] MEDS: MAG SULF 1GM/100ML (MAG RUN) 1 GM in IV 1 EA IV ONE (14:49)
[2025-05-27] MEDS: APIXABAN 5 MG TAB PO SCH (20:38)
[2025-05-28 05:50] VITALS: BP 156/71; TEMP 98.6; O2SAT 94
[2025-05-28 07:09] LABS: PLATELET COUNT, AUTOMATED 227 10^3/uL (150-450)
[2025-05-28 07:46] LABS: CALCIUM LEVEL 7.3 MG/DL (8.3-10.6); CARBON DIOXIDE LEVEL 28 MMOL/L (20-31); CHLORIDE LEVEL 107 MMOL/L (98-107); CREATININE FOR GFR 0.73 MG/DL (0.70-1.30); GLOMERULAR FILTRATION RATE > 90.0 (>35); MAGNESIUM LEVEL 1.8 MG/DL (1.8-2.4); POTASSIUM SERUM 2.7 MMOL/L (3.5-5.1); SODIUM LEVEL 144 MMOL/L (136-145)
[2025-05-28 08:02] LABS: ATYPICAL LYMPH 6 % (0-5); LYMPHOCYTES 11 % (16-44); METAMYELOCYTES 1 % (0-0); MONOCYTES 7 % (0-5); NEUTROPHILS 72 % (28-66)
[2025-05-28 08:03] LABS: PLATELET ESTIMATE NORMAL (NORMAL)
[2025-05-28] MEDS ORDERED: POTASSIUM CHLORIDE 10MEQ SR TABLET PO SCH (09:00)
[2025-05-28] MEDS: KCL 10MEQ/100ML SWI (KRUN) 10 MEQ in IV 1 EA IV SCH (09:01)
[2025-05-28] MEDS: LOPERAMIDE 2 MG CAPLET PO PRN (09:02)
[2025-05-28] MEDS: POTASSIUM CHLORIDE 10MEQ SR TABLET PO SCH (09:23)
[2025-05-28 12:00] VITALS: BP 127/60; TEMP 98.7; O2SAT 93
[2025-05-28] MEDS: NS (Normal Saline) 0.9% 1,000 ML IV SCH (13:03)
[2025-05-28 15:48] LABS: CALCIUM LEVEL 6.8 MG/DL (8.3-10.6); CARBON DIOXIDE LEVEL 28.0 MMOL/L (20-31); CHLORIDE LEVEL 105.0 MMOL/L (98-107); CREATININE FOR GFR 0.76 MG/DL (0.70-1.30); GLOMERULAR FILTRATION RATE 89.2 (>35); POTASSIUM SERUM 4.4 MMOL/L (3.5-5.1); SODIUM LEVEL 140.0 MMOL/L (136-145)
[2025-05-28 20:12] VITALS: BP 130/68; TEMP 98.6; O2SAT 96
[2025-05-29 01:07] VITALS: BP 145/68
[2025-05-29 03:56] VITALS: BP_SYST 152; BP_SYST 170; BP_DIAS 66; BP_DIAS 82; TEMP 97.3; O2SAT 96
[2025-05-29 06:45] LABS: BASO # 0.0 10^3/uL (0.0-0.2); BASO % 0.3 % (0.0-1.0); EOS # 0.0 10^3/uL (0.0-0.5); EOS % 0.5 % (0.0-3.0); LYMPH # 0.5 10^3/uL (1.5-5.0); LYMPH % 7.7 % (24.0-44.0); MONO # 0.5 10^3/uL (0.0-0.8); MONO % 7.2 % (2.0-8.0); NEUTROPHILS # 5.0 10^3/uL (1.5-8.5); NEUTROPHILS % 76.8 % (36.0-66.0); PLATELET COUNT, AUTOMATED 226 10^3/uL (150-450)
[2025-05-29 07:10] LABS: CALCIUM LEVEL 6.7 MG/DL (8.3-10.6); CARBON DIOXIDE LEVEL 29 MMOL/L (20-31); CHLORIDE LEVEL 105 MMOL/L (98-107); CREATININE FOR GFR 0.71 MG/DL (0.70-1.30); GLOMERULAR FILTRATION RATE > 90.0 (>35); MAGNESIUM LEVEL 1.7 MG/DL (1.8-2.4); POTASSIUM SERUM 3.2 MMOL/L (3.5-5.1); SODIUM LEVEL 143 MMOL/L (136-145)
[2025-05-29] MEDS ORDERED: POTASSIUM CHLORIDE 10MEQ SR TABLET PO SCH (09:00)
[2025-05-29] MEDS: POTASSIUM CHLORIDE 10MEQ SR TABLET PO SCH (09:05)
[2025-05-29] MEDS: KCL 10MEQ/100ML SWI (KRUN) 10 MEQ in IV 1 EA IV SCH (09:07)
[2025-05-29 12:00] VITALS: BP 138/65; TEMP 98.1; O2SAT 93
[2025-05-29 20:25] VITALS: BP 137/69; TEMP 97.5; O2SAT 97
[2025-05-30 01:41] LABS: CALCIUM LEVEL 6.6 MG/DL (8.3-10.6); CARBON DIOXIDE LEVEL 29 MMOL/L (20-31); CHLORIDE LEVEL 105 MMOL/L (98-107); CREATININE FOR GFR 0.73 MG/DL (0.70-1.30); GLOMERULAR FILTRATION RATE > 90.0 (>35); MAGNESIUM LEVEL 1.9 MG/DL (1.8-2.4); POTASSIUM SERUM 3.9 MMOL/L (3.5-5.1); SODIUM LEVEL 141 MMOL/L (136-145)
[2025-05-30] MEDS: MAG SULF 1GM/100ML (MAG RUN) 1 GM in IV 1 EA IV SCH (03:00)
[2025-05-30 04:20] VITALS: BP 147/69; TEMP 97.5; O2SAT 95
[2025-05-30] MEDS: KCL 10MEQ/100ML SWI (KRUN) 10 MEQ in IV 1 EA IV ONE (04:58)
[2025-05-30 05:00] VITALS: BP 151/77; TEMP 97.8; O2SAT 97
[2025-05-30 06:18] LABS: BASO # 0.0 10^3/uL (0.0-0.2); BASO % 0.5 % (0.0-1.0); EOS # 0.0 10^3/uL (0.0-0.5); EOS % 0.5 % (0.0-3.0); LYMPH # 0.7 10^3/uL (1.5-5.0); LYMPH % 9.4 % (24.0-44.0); MONO # 0.5 10^3/uL (0.0-0.8); MONO % 6.3 % (2.0-8.0); NEUTROPHILS # 5.9 10^3/uL (1.5-8.5); NEUTROPHILS % 76.8 % (36.0-66.0); PLATELET COUNT, AUTOMATED 223 10^3/uL (150-450)
[2025-05-30 06:48] LABS: CALCIUM LEVEL 6.9 MG/DL (8.3-10.6); CARBON DIOXIDE LEVEL 29 MMOL/L (20-31); CHLORIDE LEVEL 104 MMOL/L (98-107); CREATININE FOR GFR 0.72 MG/DL (0.70-1.30); GLOMERULAR FILTRATION RATE > 90.0 (>35); MAGNESIUM LEVEL 2.6 MG/DL (1.8-2.4); POTASSIUM SERUM 4.0 MMOL/L (3.5-5.1); SODIUM LEVEL 140 MMOL/L (136-145)
[2025-05-30] MEDS: POTASSIUM CHLORIDE 10MEQ SR TABLET PO SCH (08:22)
[2025-05-30 12:00] VITALS: TEMP 98.5; O2SAT 96
[2025-05-30 19:50] VITALS: BP 133/63; TEMP 98.7; O2SAT 96
[2025-05-31 03:49] VITALS: BP 151/70; TEMP 98.4; O2SAT 97
[2025-05-31 07:45] VITALS: O2SAT 96
[2025-05-31 07:57] VITALS: O2SAT 95
[2025-05-31 08:31] LABS: PLATELET COUNT, AUTOMATED 228 10^3/uL (150-450)
[2025-05-31] MEDS: BACTRIM 160MG/800MG DS TAB PO SCH (08:43)
[2025-05-31 08:58] LABS: CALCIUM LEVEL 6.8 MG/DL (8.3-10.6); CARBON DIOXIDE LEVEL 30.0 MMOL/L (20-31); CHLORIDE LEVEL 106.0 MMOL/L (98-107); CREATININE FOR GFR 0.79 MG/DL (0.70-1.30); GLOMERULAR FILTRATION RATE 88.2 (>35); MAGNESIUM LEVEL 2.0 MG/DL (1.8-2.4); POTASSIUM SERUM 3.3 MMOL/L (3.5-5.1); SODIUM LEVEL 143.0 MMOL/L (136-145)
[2025-05-31 09:01] LABS: ATYPICAL LYMPH 2 % (0-5); EOSINOPHILS 1 % (0-3); LYMPHOCYTES 12 % (16-44); METAMYELOCYTES 1 % (0-0); MONOCYTES 2 % (0-5); NEUTROPHILS 79 % (28-66); PLATELET ESTIMATE NORMAL (NORMAL)
[2025-05-31 10:00] VITALS: O2SAT 93
[2025-05-31 11:31] VITALS: BP 134/63; TEMP 99.2; O2SAT 93
[2025-05-31] MEDS: POTASSIUM CHLORIDE 10MEQ SR TABLET PO ONE (12:31)
[2025-05-31 20:59] VITALS: BP 137/66; TEMP 98.7; O2SAT 95
[2025-05-31] MEDS ORDERED: APIXABAN 5 MG TAB PO SCH (21:00)
[2025-06-01 03:11] VITALS: BP 138/68; TEMP 98.7; O2SAT 94
[2025-06-01 06:31] LABS: BASO # 0.0 10^3/uL (0.0-0.2); BASO % 0.2 % (0.0-1.0); EOS # 0.0 10^3/uL (0.0-0.5); EOS % 0.2 % (0.0-3.0); LYMPH # 0.7 10^3/uL (1.5-5.0); LYMPH % 8.3 % (24.0-44.0); MONO # 0.4 10^3/uL (0.0-0.8); MONO % 4.7 % (2.0-8.0); NEUTROPHILS # 7.4 10^3/uL (1.5-8.5); NEUTROPHILS % 82.8 % (36.0-66.0); PLATELET COUNT, AUTOMATED 215 10^3/uL (150-450)
[2025-06-01 07:03] LABS: CALCIUM LEVEL 6.8 MG/DL (8.3-10.6); CARBON DIOXIDE LEVEL 28 MMOL/L (20-31); CHLORIDE LEVEL 106 MMOL/L (98-107); CREATININE FOR GFR 0.72 MG/DL (0.70-1.30); GLOMERULAR FILTRATION RATE > 90.0 (>35); MAGNESIUM LEVEL 2.0 MG/DL (1.8-2.4); POTASSIUM SERUM 3.5 MMOL/L (3.5-5.1); SODIUM LEVEL 143 MMOL/L (136-145)
[2025-06-01 12:23] VITALS: BP 166/75; TEMP 98.4; O2SAT 93
[2025-06-01 19:44] VITALS: BP 172/79; TEMP 99; O2SAT 96
[2025-06-01] MEDS: POTASSIUM CHLORIDE 10% LIQ 20MEQ/15ML UDC PO ONE (20:57)
[2025-06-02 04:44] VITALS: BP 176/74; TEMP 99; O2SAT 92
[2025-06-02 07:18] LABS: PLATELET COUNT, AUTOMATED 211 10^3/uL (150-450)
[2025-06-02 07:45] VITALS: BP 121/72; TEMP 98.2; O2SAT 92
[2025-06-02 11:15] VITALS: BP 140/77; TEMP 98.3; O2SAT 97
[2025-06-02 11:52] VITALS: BP 117/57; TEMP 98.2; O2SAT 94
[2025-06-02 21:06] VITALS: BP 145/67; TEMP 97.5; O2SAT 98
[2025-06-03 03:49] VITALS: BP 146/71; TEMP 97.7; O2SAT 96
[2025-06-03 11:42] VITALS: BP 139/63; TEMP 98.5; O2SAT 95
[2025-06-03] MEDS ORDERED: SODIUM CHLORIDE NASAL 0.65% SPRAY BTL (OCEAN) PRN (14:30)
[2025-06-03] MEDS: MUPIROCIN 2% OINT 22 GM TUBE TOP SCH (16:37)
[2025-06-03 20:55] VITALS: BP 147/67; TEMP 98.3; O2SAT 95
[2025-06-03 21:04] VITALS: BP 147/67
[2025-06-03] MEDS: APIXABAN 5 MG TAB PO SCH (21:04)
[2025-06-04 04:44] VITALS: BP 155/73; TEMP 98.4; O2SAT 93
[2025-06-04] MEDS ORDERED: POTA-136 PO (07:33)
[2025-06-04] MEDS ORDERED: ELIQ5TAB PO (07:33)
[2025-06-04] MEDS ORDERED: QUET1TAB17 PO (07:33)
[2025-06-04 12:00] VITALS: BP 156/72; TEMP 98.7; O2SAT 96
[2025-06-09] MEDS ORDERED: LEXA1TAB PO (11:04)
== END 2025-06-04 12:42 | disposition home health service (06) | DRG 698 ==
LOC: EDBD 13:15 → M ED 13:15 → M ED INP 16:31 → M PCU 17:51 → M MSPAV 05-26 16:16
PROVIDERS: ADMIT Internal Medicine; ATTEND Student in an Organized Health Care Education/Training Program
DX: T83.511A Infection and inflammatory reaction due to indwelling urethral catheter, initial encounter (principal); A41.9 Sepsis, unspecified organism; J18.9 Pneumonia, unspecified organism; I26.99 Other pulmonary embolism without acute cor pulmonale; C71.9 Malignant neoplasm of brain, unspecified; N39.0 Urinary tract infection, site not specified; F32.A Depression, unspecified; E11.9 Type 2 diabetes mellitus without complications; I10 Essential (primary) hypertension; R53.1 Weakness; R33.9 Retention of urine, unspecified; N40.1 Benign prostatic hyperplasia with lower urinary tract symptoms; D72.819 Decreased white blood cell count, unspecified; I27.20 Pulmonary hypertension, unspecified; E87.6 Hypokalemia; E78.5 Hyperlipidemia, unspecified; E86.0 Dehydration; R19.7 Diarrhea, unspecified; E83.42 Hypomagnesemia; R31.0 Gross hematuria; Z92.21 Personal history of antineoplastic chemotherapy; F41.9 Anxiety disorder, unspecified; Z92.3 Personal history of irradiation; Z79.899 Other long term (current) drug therapy; Z66 Do not resuscitate; Y84.6 Urinary catheterization as the cause of abnormal reaction of the patient, or of later complication, without mention of misadventure at the time of the procedure

== ENCOUNTER → 2025-06-21 | Outpatient (CLI) | payer MEDICARE, MEDICAID ==
[~2025-06-21] MED LIST changes: -BACTDSTA; -BACTDSTA PO; +ELIQ5TAB PO; +LEXA1TAB PO; +NYST1POW3 TOP; +POTA-136 PO; +QUET1TAB17 PO; +SULF-8; +SULF-8 PO
== END ==
LOC: M PAL 11:19
PROVIDERS: ATTEND Physician Assistant
DX: Z51.5 Encounter for palliative care (principal); Z66 Do not resuscitate; C71.9 Malignant neoplasm of brain, unspecified; Z98.890 Other specified postprocedural states; Z92.3 Personal history of irradiation; Z91.048 Other nonmedicinal substance allergy status; Z79.899 Other long term (current) drug therapy; Z79.84 Long term (current) use of oral hypoglycemic drugs; Z79.83 Long term (current) use of bisphosphonates; Z79.02 Long term (current) use of antithrombotics/antiplatelets